=== PATIENT | female | born 1995 | race Caucasian/White ===

== ENCOUNTER 2020-03-27 12:10 | Emergency (ER) | payer OTHER, SELFPAY ==
[2020-03-27 12:26] VITALS: BP 142/96; PULSE 87; RESP 16; TEMP 37.5; O2SAT 100
--- NOTE | 2020-03-27 13:05 | ED.FEMALEGU ---
HPI - Female Genitourinary General Chief complaint: Urogenital-Female Stated complaint: possibl uti History of Present Illness HPI Narrative: This is a 27-year-old white female who presented today to urgent care with complaints of painful urination. According to patient she has had the symptoms for approximately 4 days, while at home she states she drink plenty of fluids with no relief. Patient does have a history of urinary tract infection she notes that previously she became septic as a result of not being treated and was in the hospital for 3 to 4 days. We will treat this patient for urinary tract infection based on symptoms a culture will be sent out. The patient denies hematuria , urgency , incontinence , frequency SOB, CP, palpitation, extremity numbness, lightheadedness, dizziness, constipation, diarrhea, chills, or fever. Patient denies any STDs Related Data Home Medications Medication Instructions Recorded Confirmed levonorgestrel [Mirena] 1 device INTRAUTERINE ONCE 03/27/20 03/27/20 Allergies Allergy/AdvReac Type Severity Reaction Status Date / Time No Known Allergies Allergy Verified 03/27/20 12:23 Review of Systems Review of Systems: All systems reviewed & are unremarkable except as noted in HPI and below PMFSH Social History Social History Gender identity (if verbalized by the patient): Female Exam Narrative: Exam Narrative: GENERAL: This is a well-nourished, well-developed patient, in no apparent distress. HEAD: normocephalic, atraumatic. EYES: PERRL. Sclera clear/white. Vision is grossly intact. EARS: External ears normal, auditory canals clear and without drainage, TMs normal without perforation. Hearing grossly intact. NOSE: External nose normal with no obvious nasal discharge, nares without redness, no rhinorrhea. THROAT: Mucous membranes moist, posterior pharynx clear. NECK: Neck supple, non-tender without lymphadenopathy, masses or thyromegaly. CARDIOVASCULAR: Regular rate and rhythm without murmurs, gallops, or rubs. RESPIRATORY: Clear to auscultation. Breath sounds equal bilaterally. No wheezes, rales, or rhonchi. GASTROINTESTINAL: Abdomen soft, non-tender, nondistended. Bowel sounds are active. No hepato-splenomegaly, or palpable masses. No guarding. SKIN: warm, intact with no suspicious lesions or rash, good texture and turgor. NEURO: awake, alert, and oriented to person, place and time. There were no obvious focal neurologic abnormalities. Steady gait EXTREMITIES: Normal range of motion. No edema. No calf tenderness. Negative Homans sign bilaterally. BACK: Nontender without deformity or crepitance. No flank tenderness. Course Course Emergency Course: Patient will discharge home with Bactrim x3 days. Culture sent out Urinalysis negative, will treat patient off of symptoms along and history Vital Signs Vital signs: Vital Signs Temperature 99.5 F 03/27/20 12:26 Pulse Rate 87 03/27/20 12:26 Respiratory Rate 16 03/27/20 12:26 Blood Pressure 142/96 H 03/27/20 12:26 Pulse Oximetry 100 03/27/20 12:26 Temperature 99.5 F 03/27/20 12:26 Pulse Rate 87 03/27/20 12:26 Respiratory Rate 16 03/27/20 12:26 Blood Pressure 142/96 H 03/27/20 12:26 Pulse Oximetry 100 03/27/20 12:26 MDM - Female Genitourinary Differential Diagnosis Differential diagnosis: Likely urinary tract infection, bacterial vaginosis and vaginitis Lab Data Labs: Urine Glucose Negative Reference Range: Negative Urine Bilirubin Negative Reference Range: Negative Urine Ketone Negative Reference Range: Negative Urine Specific [place] 1.025 Reference Range:1.001-1.035
== END 2020-03-27 13:06 | disposition home or self-care (01) ==
PROVIDERS: Emergency Provider Nurse Practitioner
DX: N39.0 Urinary tract infection, site not specified (principal)
CPT/HCPCS: 81003; 87077; 87086; 87088; 99213; G0463

== ENCOUNTER 2020-09-23 10:08 | Emergency (ER) | payer OTHER, SELFPAY ==
[2020-09-23 10:31] VITALS: BP 110/52; PULSE 81; RESP 18; TEMP 36.8; O2SAT 99
--- NOTE | 2020-09-23 11:02 | ED.ALCOHOL ---
HPI - Alcohol General Chief Complaint: Alcohol Stated Complaint: ?alcohol Poisoning Time Seen by Provider: 09/23/20 10:39 Source: patient Mode of arrival: ambulatory Limitations: no limitations History of Present Illness HPI narrative: Patient is a 25-year-old female complaining of I drank too much last night , now having nausea and not feeling well . Patient states that she does not know how much she drank last night but she states that she drank a lot . Patient denies any chest pain, shortness of breath, abdominal pain, diarrhea, fever or chills. Related Data Home Medications Medication Instructions Recorded Confirmed levonorgestrel [Mirena] 1 device INTRAUTERINE ONCE 03/27/20 03/27/20 Allergies Allergy/AdvReac Type Severity Reaction Status Date / Time No Known Allergies Allergy Verified 03/27/20 12:23 Review of Systems Review of Systems: All systems reviewed & are unremarkable except as noted in HPI and below Constitutional: Constitutional: Denies body ache(s), Denies chills, Denies excessive sweating, Denies fatigue, Denies fever(s), Denies headache(s), Denies lethargy, Denies malaise, Denies weakness and Denies weight loss Eyes: Eyes: Denies blurry vision, Denies change in vision and Denies loss of vision ENT: Denies dizziness, Denies ear discharge, Denies headache(s), Denies lip swelling, Denies epistaxis, Denies nasal congestion, Denies neck pain, Denies throat swelling and Denies tongue swelling Cardiovascular: Cardiovascular: Denies chest pain, Denies chest pain at rest, Denies chest pain with activity, Denies diaphoresis, Denies rapid heart rate, Denies edema, Denies irregular heart rhythm, Denies lightheadedness, Denies palpitations, Denies dyspnea and Denies dyspnea on exertion Respiratory: Respiratory: Denies chest congestion, Denies cough, Denies hemoptysis, Denies dyspnea and Denies dyspnea on exertion Gastrointestinal: Gastrointestinal: Denies abdominal pain, Denies melena, Denies hematochezia, Denies diarrhea and Denies hematemesis Musculoskeletal: Musculoskeletal: Denies abnormal gait, Denies deformity, Denies joint swelling, Denies limited range of motion, Denies neck pain and Denies numbness Neurologic: Denies Abnormal speech present, Denies abnormal gait, Denies confusion, Denies dizziness, Denies headache(s), Denies focal weakness, Denies loss of vision, Denies numbness, Denies Other visual disturbances, Denies Sensory deficit (Neuro) and Denies weakness Psychiatric: Psychiatric: Denies confusion, Denies depression, Denies auditory hallucinations, Denies homicidal ideation and Denies suicidal ideation Endocrine: Endocrine: Denies cold intolerance, Denies excessive sweating, Denies fatigue, Denies heat intolerance and Denies palpitations Hematologic/Lymphatic: Hematologic/Lymphatic: Denies easy bleeding and Denies easy bruising Allergic/Immunologic: Allergic/Immunologic: Denies lip swelling, Denies throat swelling and Denies tongue swelling [facility] Social History Social History Gender identity (if verbalized by the patient): Female Comments Past medical history: None Family history: Noncontributory Social history: Non-smoker, occasional EtOH use, no drug use Exam Const: General: cooperative, healthy appearing, comfortable, no acute distress, well developed, alert and awake; No confusion Orientation/consciousness: oriented to person, oriented to place, oriented to time, patient oriented x3 and No confusion Limitations: no limitations HENMT: Head: normal to inspection, normocephalic and atraumatic Ears: hearing grossly normal bilaterally, TM normal on the right and TM normal on the left General nose exam: Normal external nose present, Normal nares present and No nasal discharge present Face and sinus: normal facial exam Mouth: Yes Normal oral and palatal mucosa present, Yes lip normal, Yes tongue normal and Yes oropharynx normal Thro
[2020-09-23 11:37] LABS: Basophils Absolute Auto 0.1 K/mm3 (0.0-0.1); Basophils Percent Auto 0.7 % (0.2-1.2); Eosinophils Absolute Auto 0.1 K/mm3 (0-0.3); Eosinophils Percent Auto 0.4 % (0-4.4); Hematocrit 37.3 % (37.0-47.0); Hemoglobin 12.8 g/dL (12.0-15.0); Immature Granulocyte Absolute 0.09 K/mm3 (0.00-0.031); Immature Granulocyte Percent A 0.6 % (0-0.5); Lymphocytes Absolute Auto 1.65 K/mm3 (0.9-3.2); Lymphocytes Percent Auto 11.9 % (18.3-44.2); Mean Corpuscular HGB Conc 34.3 g/dl (32-36); Mean Corpuscular Hemoglobin 30.2 pg (26-34); Mean Platelet Volume 10.1 fl (7.4-10.4); Monocytes Percent Auto 6.9 % (2.6-8.5); Neutrophils Percent Auto 79.5 % (45.5-73.1); Platelet Count Result 304 k/mm3 (150-375); Red Blood Count 4.24 M/mm3 (4.2-5.4); Red Cell Distribution Width 12.5 % (11.5-14.5); White Blood Count 13.9 K/mm3 (4.5-10.0)
[2020-09-23] MEDS: SODIUM CHLORIDE 0.9% IV 1,000 ML 999 ML IV CONT (11:37)
[2020-09-23] MEDS: ONDANSETRON INJ 4 MG/2 ML VIAL IV PUSH (11:37)
[2020-09-23 11:39] VITALS: BP 102/68; PULSE 68; RESP 22; TEMP 36.6; O2SAT 99
--- NOTE | 2020-09-23 11:46 | PC.NURSE ---
Patient reports miscarriage on wednesday09/21/20 at [facility] 12 and 06/26. She reports ongoing but minor bleeding with some lower abdominal cramping. Discomfort worse with palpation of the LLQ. She tells me that this was her first .
[2020-09-23 11:57] LABS: Alanine Aminotransferase 24 U/L (4-35); Albumin Level 4.4 g/dL (3.5-5.1); Alkaline Phosphatase 52 U/L (38-126); Anion Gap 17 mmol/L (8-16); Aspartate Amino Transferase 30 U/L (14-36); Bilirubin,Total 0.5 mg/dL (0.2-1.3); Blood Urea Nitrogen 7 mg/dL (7-17); Calcium 9.4 mg/dL (8.4-10.2); Carbon Dioxide 19 mmol/L (22-30); Chloride 102 mmol/L (98-107); Estimated CRCL calculation 141 ml/min; Estimated Glomerular Filt Rate > 60; Glucose 100 mg/dL (65-105); Lipase 18 U/L (23-300); Potassium 3.3 mmol/L (3.4-5.0); Sodium 138 mmol/L (137-145)
[2020-09-23 13:23] VITALS: BP 119/72; PULSE 85; RESP 17; TEMP 36.6; O2SAT 99
== END 2020-09-23 13:25 | disposition home or self-care (01) ==
PROVIDERS: Emergency Provider Emergency Medicine
DX: F10.129 Alcohol abuse with intoxication, unspecified (principal); R11.2 Nausea with vomiting, unspecified
CPT/HCPCS: 36415; 80053; 81025; 83690; 85025; 96361; 96374; 99284; J2405; J7030

== ENCOUNTER 2020-12-31 15:23 | Emergency (ER) | payer OTHER, SELFPAY ==
[2020-12-31 15:31] VITALS: BP 130/96; PULSE 78; RESP 16; TEMP 36.7; O2SAT 100
--- NOTE | 2020-12-31 15:31 | ED.FEMALEGU ---
HPI - Female Genitourinary General Chief complaint: Urogenital-Female Stated complaint: UTI Time Seen by Provider: 12/31/20 15:31 Source: patient and RN notes reviewed Mode of arrival: ambulatory Limitations: no limitations History of Present Illness HPI Narrative: 25-year-old female presents to the [facility] with complaints of urinary pain, frequency, urgency and bladder pressure. Been going on for almost a week. Denies nausea vomiting or diarrhea. Denies fevers. MD elicited complaint: UTI Related Data Allergies Allergy/AdvReac Type Severity Reaction Status Date / Time No Known Allergies Allergy Verified 12/31/20 15:24 Review of Systems Review of Systems: All systems reviewed & are unremarkable except as noted in HPI and below Constitutional: Constitutional: Reports no additional constitutional complaints Eyes: Eyes: Reports no additional eye complaints ENT: Reports system reviewed and no additional complaints, except as documented Cardiovascular: Cardiovascular: Reports no additional cardiovascular complaints Respiratory: Respiratory: Reports no additional respiratory complaints Gastrointestinal: Gastrointestinal: Reports abdominal pain (Suprapubic pressure), Denies diarrhea, Denies nausea and Denies vomiting Genitourinary: Genitourinary: Reports as per HPI, Denies hematuria, Reports nocturia, Denies genital lesions, Reports dysuria, Denies pelvic pain, Denies flank pain and Denies urinary incontinence Musculoskeletal: Musculoskeletal: Reports no additional musculoskeletal complaints Integumentary/Breasts: Skin/Breast: Reports system reviewed and no additional complaints, except as docu Neurologic: Reports system reviewed and no additional complaints, except as documented Psychiatric: Psychiatric: Reports no additional psychiatric complaints Allergic/Immunologic: Allergic/Immunologic: Reports no additional allergic/immunologic complaints PMFSH Past Medical History Medical History (Updated 01/02/21 @ 08:27 by Jennifer Swift) No significant past medical history Surgical History Surgical History (Updated 12/31/20 @ 15:47 by Jennifer Swift) No significant past surgical history Social History Social History Gender identity (if verbalized by the patient): Female Comments At the time of my signature, I reviewed and agree with the nursing past medical, surgical, social, and family history. There is no relevant family history pertinent to the patient complaint. Exam Const: General: healthy appearing, no acute distress and alert Nutritional Appearance: well nourished Orientation/consciousness: patient oriented x3 Limitations: no limitations HENMT: Head: normal to inspection Eyes: Pupils: Equal, round and reactive pupils present Neck: Neck: normal visual inspection, no lymphadenopathy and no meningeal signs Chest: Chest palpation & inspection: normal inspection of the chest Resp: Effort & Inspection: normal respiratory effort and no use of accessory muscles Auscultation: clear to auscultation bilaterally Cardio: Rate: regular rate Rhythm: regular rhythm GI: GI Palp: Yes Soft to palpation, No Tenderness to palpation present (GI) and No Guarding due to palpation present (GI) : General: Yes no CVA tenderness Back/Spine/Pelvis: Back: no CVA tenderness Skin: General skin exam: normal color Rashes: no rashes Neuro: General: patient oriented x3, moves all extremities, no meningeal signs and no focal motor deficits Speech: normal speech Gait exam (Neuro): Normal gait present Extrem: General: normal to inspection Psych: Mental Status: mental status grossly normal Affect: normal affect Attitude: cooperative Thought content: Yes Normal thought content present Judgement: Good judgement present (Psych) Course Course Emergency Course: Discharge instructions reviewed with patient, as well as provided in writing per nursing staff. The instr
== END 2020-12-31 15:53 | disposition home or self-care (01) ==
PROVIDERS: Emergency Provider Nurse Practitioner
DX: N39.0 Urinary tract infection, site not specified (principal)
CPT/HCPCS: 81003; 87077; 87086; 87088; 87186; 99213; G0463

== ENCOUNTER 2021-06-29 08:56 | Emergency (ER) | payer OTHER, SELFPAY ==
[2021-06-29] VITALS (10 sets, daily range): BP systolic 88–121; BP diastolic 43–73; PULSE 89–118; RESP 18–29; TEMP 36.7; O2SAT 98–100
--- NOTE | ~2021-06-29 | CT_ITS ---
EXAMINATION: CT brain wo con, CT cervical spine wo con EXAM DATE: 06/29/2021 09:58 INDICATION: 22 weeks preg, syncope, right frontal head injury. TECHNIQUE: Spiral CT of the head was performed without contrast. Axial, coronal and sagittal images were reviewed. Spiral CT of the cervical spine was performed without contrast. Axial images were rev iewed. Coronal and sagittal reformatted images were also reviewed. The dose-length product (DLP) fo r this examination was 605.33 (accession [id number]), 425.46 (accession [id number]) mGy-cm. The exposure was tailored according to patient size, and iterative reconstruction (ASIR) was used as additional dose reduction technique. There is no prior study for comparison. FINDINGS: HEAD CT: There is no acute intraparenchymal hemorrhage. No evidence of intraparenchymal brain mass l esion. No evidence of acute infarction. There is no mass effect or midline shift. There is no obstru ctive hydrocephalus suspected. There are no extra-axial collections. There are no acute calvarial f ractures. The orbits are unremarkable. Soft tissue is unremarkable. The visualized sinuses and mas toid air cells are well aerated. CERVICAL CT: There is no evidence of acute cervical fracture. The odontoid process is intact. Pre-d ens space is normal. Prevertebral soft tissue is normal. There are no soft tissue abnormalities parish ntified. There is no disc space widening or traumatic vertebral body subluxation suspected. Vertebr al body and disc heights are well-maintained. A detailed level by level evaluation of spondylosis c an be added as addendum if requested. IMPRESSION: 1. No acute intracranial findings or cervical fracture. 2. Small right frontal scalp contusion. Reviewed, dictated and finalized at location A. IMPRESSION: 1. No acute intracranial findings or cervical fracture. 2. Small right frontal scalp contusion.
--- NOTE | ~2021-06-29 | US_ITS ---
EXAMINATION: US OB limited EXAM DATE: 06/29/2021 11:23 INDICATION: 22 weeks, Hx of p.previa, fall/syncope . 2nd trimester. TECHNIQUE: Pelvic obstetrical transabdominal sonogram was performed by a technologist. There are mu ltiple grayscale and Doppler images available for interpretation. There are no earlier studies of th is gestation for comparison. FINDINGS: There is a single fetus identified in variable presentation with a heart rate of 145 beats per minute. The placenta is located in the anterior position. There is no sonographic evidence of re troplacental hemorrhage identified. Placental margin to internal cervical os distance is 2.2 cm. IMPRESSION: 1. Single fetus in variable presentation with heart rate 145 beats per minute. 2. Anteriorly located placenta, margin 2.2 cm from internal cervical os. No sonographic evidence of abruption. Reviewed, dictated and finalized at location A. IMPRESSION: 1. Single fetus in variable presentation with heart rate 145 beats per minute. 2. Anteriorly located placenta, margin 2.2 cm from internal cervical os. No so nographic evidence of abruption.
--- NOTE | 2021-06-29 09:08 | ECG_ITS ---
Measurements Intervals [place] Rate: 116 P: 7 GA: 153 QRS: 20 QRSD: 86 T: -12 QT: 341 QTc: 474 Interpretive Statements SINUS TACHYCARDIA NONSPECIFIC T-WAVE ABNORMALITY CANNOT RULE OUT ANTERIOR INFARCTION, AGE INDETERMINATE ABNORMAL ECG NO PREVIOUS ECG AVAILABLE FOR COMPARISON Electronically Signed On 06-30-2021 13:51:03 CDT by David Valerio M.D.
[2021-06-29 09:13] LABS: Glucose Point of Care 119 mg/dl (65-105)
[2021-06-29 09:34] LABS: Basophils Percent Auto 0.3 % (0.2-1.2); Eosinophils Percent Auto 0.1 % (0-4.4); Hemoglobin 11.2 g/dL (12.0-15.0); Immature Granulocyte Absolute 0.34 K/mm3 (0.00-0.031); Immature Granulocyte Percent A 2.4 % (0-0.5); Lymphocytes Absolute Auto 1.72 K/mm3 (0.9-3.2); Lymphocytes Percent Auto 12.4 % (18.3-44.2); Mean Corpuscular Hemoglobin 30.9 pg (26-34); Mean Corpuscular Volume 88.4 fl (80-100); Mean Platelet Volume 9.7 fl (7.4-10.4); Monocytes Absolute Auto 0.8 K/mm3 (0.1-0.6); Neutrophils Percent Auto 78.8 % (45.5-73.1); Platelet Count Result 280 k/mm3 (150-375); Red Blood Count 3.62 M/mm3 (4.2-5.4); Red Cell Distribution Width 13.1 % (11.5-14.5); White Blood Count 13.9 K/mm3 (4.5-10.0)
--- NOTE | 2021-06-29 09:34 | ED.SYNCOPE ---
HPI - Syncope General Chief Complaint: Syncope <Mellissa Kang PA-C - Last Filed: 06/29/21 13:21> Stated Complaint: Syncopal Episode <Mellissa Kang PA-C - Last Filed: 06/29/21 13:21> Time Seen by Provider: 06/29/21 08:58 <Mellissa Kang PA-C - Last Filed: 06/29/21 13:21> Source: patient and family <ESME Bender Last Filed: 06/29/21 13:21> Mode of arrival: ambulatory <ESME Bender Last Filed: 06/29/21 13:21> Limitations: no limitations <ESME Bender Last Filed: 06/29/21 13:21> History of Present Illness HPI narrative: Patient is a 25-year-old female who presents to the ED with report of syncope. Patient is currently 22 weeks . Her HEALTH AND SAFETY DIRECTOR is Dr. Obrien. She reports she was recently started on sertraline for her depression which was increased from 50 mg to 100 mg 1 week ago. Patient has had intermittent episodes of lightheadedness and near syncope since beginning the sertraline however she has never passed out. She reports being under increased stress recently and states last night she got into a heated argument with her . She hardly slept last night. Patient was then talking to her mother this morning when she had a syncopal episode. Patient's mother at bedside reports the patient began repeating what she was saying and then lost consciousness and fell forward hitting her head. Mother states it took approximately 40 to 50 seconds for patient to fully regained consciousness. Patient remembers feeling lightheaded, but does not remember much else about the syncopal episode. She complains of pain to her right forehead where she sustained a small contusion. No neck pain, chest pain, shortness of breath, abdominal pain, vaginal bleeding, leakage of fluid, nausea, vomiting, vision changes. Patient last had an ultrasound on 06/19. She does note she has marginal placenta previa. <ESME Bender Last Filed: 06/29/21 13:21> Related Data Allergies/Adverse Reactions: Allergies Allergy/AdvReac Type Severity Reaction Status Date / Time No Known Allergies Allergy Verified 06/29/21 09:15 <Mellissa Kang PA-C - Last Filed: 06/29/21 13:21> Review of Systems Review of Systems: CONSTITUTIONAL: Denies fever, chills, or sweats. EYES: Denies visual changes. CARDIOVASCULAR: Denies chest pain. RESPIRATORY: Denies dyspnea. GASTROINTESTINAL: Denies abdominal pain, nausea, vomiting. GENITOURINARY: Denies vaginal bleeding, leakage of fluid, dysuria, or hematuria. SKIN: Denies rash or itching. MUSCULOSKELETAL: Denies back pain, neck pain. NEUROLOGIC: Reports lightheadedness, pain to R forehead, syncope, LOC. Denies numbness, or weakness. PSYCHIATRIC: Reports depression. Denies anxiety. <Mellissa Kang PA-C - Last Filed: 06/29/21 13:21> All systems reviewed & are unremarkable except as noted in HPI and below <Mellissa Kang PA-C - Last Filed: 06/29/21 13:21> PMFSH Past Medical History Medical History: Medical History (Updated 06/29/21 @ 11:52 by Mellissa Kang PA-C) Anemia Depression affecting No significant past medical history <Mellissa Kang PA-C - Last Filed: 06/29/21 13:21> Surgical History Surgical History: Surgical History No significant past surgical history <Mellissa Kang PA-C - Last Filed: 06/29/21 13:21> Social History Social History: Social History (Updated 06/29/21 @ 09:43 by Mellissa Kang PA-C) Smoking status: Never smoker Gender identity (if verbalized by the patient): Female <Mellissa Kang PA-C - Last Filed: 06/29/21 13:21> Exam Narrative: GENERAL: Well appearing, well-nourished, non-toxic, in no acute distress. HEAD: Normocephalic. Small tender contusion with ecchymosis forming on R forehead. EYES: PERRL/EOMI, conjunctivae clear bilaterally. NECK: Supple. No adenopathy, no masses. No midline spinal tenderness to palpation.
[2021-06-29 09:45] LABS: Alanine Aminotransferase 12 U/L (4-35); Albumin Level 4.2 g/dL (3.5-5.1); Alkaline Phosphatase 57 U/L (38-126); Anion Gap 14 mmol/L (8-16); Aspartate Amino Transferase 25 U/L (14-36); Bilirubin,Total < 0.1 mg/dL (0.2-1.3); Blood Urea Nitrogen 5 mg/dL (7-17); Calcium 8.5 mg/dL (8.4-10.2); Carbon Dioxide 18 mmol/L (22-30); Chloride 106 mmol/L (98-107); Estimated CRCL calculation 175 ml/min; Estimated Glomerular Filt Rate > 60; Glucose 106 mg/dL (65-110); Potassium 3.6 mmol/L (3.4-5.0); Sodium 138 mmol/L (137-145)
--- NOTE | 2021-06-29 09:47 | PC.NURSE ---
Pt to CT scan via stretcher at this time.
[2021-06-29 09:50] LABS: Add Urine Microscopic? YES; Appearance Urine Cloudy (Clear); Bilirubin Urine Negative (Negative); Blood Urine Negative (Negative); Color Urine Yellow (Yellow); Glucose Urine UA Negative (Negative); Ketones Urine Negative (Negative); Leukocyte Esterase Ur Negative LEU/UL (Negative); Mucus Urine Rare /lpf; Nitrate Urine Negative (Negative); Protein Urine 2+ mg/dL (Negative); RBC Urine 0-2 /hpf (0-2); Specific Grav Ur 1.014 (1.001-1.035); Squamous Epithelial Cell Urine Few /hpf (Few); Urobilinogen Urine Negative mg/dL (<2.0); WBC Urine 0-3 /hpf
[2021-06-29] MEDS: SODIUM CHLORIDE 0.9% IV 1,000 ML 999 ML IV CONT ×2 (10:07→11:39)
--- NOTE | 2021-06-29 11:25 | PC.NURSE ---
Pt to U/S at this time.
== END 2021-06-29 13:21 | disposition home or self-care (01) ==
PROVIDERS: Physician Assistant; Emergency Provider Emergency Medicine
DX: O26.892 Other specified pregnancy related conditions, second trimester (principal); R55 Syncope and collapse; O99.342 Other mental disorders complicating pregnancy, second trimester; F32.A Depression, unspecified; O99.012 Anemia complicating pregnancy, second trimester; D64.9 Anemia, unspecified; Z3A.22 22 weeks gestation of pregnancy
CPT/HCPCS: 36415; 70450; 72125; 76815; 80053; 81001; 82948; 84702; 85025; 93005; 96360; 96361; 99284; J7030

== ENCOUNTER 2021-08-27 01:49 | Observation (INO) | payer OTHER, SELFPAY ==
[2021-08-27 02:15] VITALS: BP 103/67; PULSE 83
[2021-08-27 02:30] VITALS: BP 104/66; PULSE 80
[2021-08-27 02:45] VITALS: BP 98/60; PULSE 86
[2021-08-27 03:00] VITALS: BP 111/56; PULSE 78
[2021-08-27 03:07] LABS: Appearance Urine Clear (Clear); Bilirubin Urine Negative (Negative); Blood Urine Negative (Negative); Color Urine Yellow (Yellow); Glucose Urine UA Negative (Negative); Ketones Urine 2+ mg/dL (Negative); Leukocyte Esterase Ur Negative LEU/UL (Negative); Nitrate Urine Negative (Negative); Protein Urine Negative (Negative); Specific Grav Ur 1.025 (1.001-1.035); Urobilinogen Urine 0.2 mg/dL (<2.0); pH Urine 6.5 (5.0-9.0)
[2021-08-27 03:10] LABS: Mucus Urine Rare /lpf; RBC Urine 0-2 /hpf (0-2); Squamous Epithelial Cell Urine Rare /hpf (Few); WBC Urine 0-3 /hpf
[2021-08-27 03:13] LABS: Add Urine Microscopic? YES
[2021-08-27 03:15] VITALS: BP 91/50; PULSE 77
--- NOTE | 2021-08-29 05:54 | P.PNOB_ITS ---
OB - Triage/Final Diagnosis Visit Information Comments/Additional reasons for admission: I have assessed the risk for this patient, Josie Henderson, and determined that she would benefit from observation care. Evaluation Laboratory results: Laboratory Tests 08/27/21 02:15 Urine Color Yellow Urine Appearance Clear Urine pH 6.5 Ur Specific [place] 1.025 Urine Protein Negative Urine Glucose (UA) Negative Urine Ketones 2+ H Ur Blood (Man) Negative Urine Nitrate Negative Urine Bilirubin Negative Urine Urobilinogen 0.2 Leukocyte Esterase Rfl Negative Urine RBC 0-2 Urine WBC 0-3 Ur Squamous Epith Cells Rare Urine Mucus Rare Final Diagnosis (1) Abdominal pain affecting : Code(s): O26.899 - Other specified related conditions, unspecified trimester; R10.9 - Unspecified abdominal pain Status: Acute
== END 2021-08-27 03:25 | disposition home or self-care (01) ==
PROVIDERS: Admitting Provider Obstetrics & Gynecology; Visit Provider Obstetrics & Gynecology
DX: O26.899 Other specified pregnancy related conditions, unspecified trimester (principal); R10.9 Unspecified abdominal pain; Z3A.00 Weeks of gestation of pregnancy not specified
CPT/HCPCS: 81001; G0378; G0379

== ENCOUNTER 2021-09-18 12:39 | Outpatient (RCR) | payer OTHER, SELFPAY ==
[2021-09-19] MEDS: RHO(D) IMMUNE GLOBULIN 300 MCG/2 ML SYRINGE IM (16:36)
== END 2021-12-17 23:59 | disposition home or self-care (01) ==
LOC: ANHLAB 12:39
PROVIDERS: Visit Provider Advanced Practice Midwife
DX: Z29.13 Encounter for prophylactic Rho(D) immune globulin (principal); O36.0130 Maternal care for anti-D [Rh] antibodies, third trimester, not applicable or unspecified; Z3A.00 Weeks of gestation of pregnancy not specified
CPT/HCPCS: 36415; 85461; 90384; 96372; J2790

== ENCOUNTER 2021-10-28 08:31 | Inpatient (IN) | payer OTHER, SELFPAY ==
[2021-10-28] VITALS (56 sets, daily range): BP systolic 86–163; BP diastolic 46–79; PULSE 72–134; RESP 12–18; TEMP 36.1–36.6; O2SAT 97–100; BMI 33.5
--- OUTSIDE RECORDS SUMMARY | 2021-10-28 08:38 | XMS_ITS | Encounter Summary ---
:1995 Author Care Team Providers Name Role Phone Johnny Nuñez MD Primary Care Provider [phone] Reason for Visit None recorded. Assessment and Plan 1. Placenta previa marginalis ? US, obstetric, follow-up Discussion Note: None recorded.Patient educational handouts: No information available. Plan of Care Reminders Provider Appointments Surg Post Op 11/05/2021 3:15PM Miki Obrien MD Lab None recorded. ? ? Referral None recorded. ? ? Procedures None recorded. ? ? Surgeries None recorded. ? ? Imaging US, Obstetric, 07/30/2021 [place] Follow-up Medications Name Start Date ? ? + DHA ? sertraline 100 mg tablet ? Take 1 tablet every day by oral route. valacyclovir 1 gram tablet ? Take 1 tablet every 12 hours by oral route. Medications Administered None recorded. Vitals None recorded. Results Lab Results None recorded. Allergies Code Code System Name Reaction Severity Onset NKDA ? ? ? Problems Name Status Onset Date Source ? Active 05/27/2021 ? Mixed Anxiety and Depressive Disorder Active ? ? Procedures Date Name Performed by ? 03/22/2004 Excision of Lymph Node Information not a vailable Notes: cat scatch fever 07/30/2021 US, Obstetric, Follow-up [place] [address] [place] [address] ([address]) Vaccine Lis
--- OUTSIDE RECORDS SUMMARY | 2021-10-28 08:38 | XMS_ITS | Encounter Summary ---
:1995 Author Care Team Providers Name Role Phone Johnny Nuñez MD Primary Care Provider [phone] Reason for Visit OB visit OB [id number] EDC 11/01/2021 LMP 01/25/2021 Assessment and Plan Assessment Note Patient is _36__weeks . Discuss ed plan. 1. Routine care Discussion Note: None recorded.Patient educational handouts: No information available. Plan of Care Reminders Provider Appointments Surg Post Op 11/05/2021 3:15PM Miki Obrien MD Lab None recorded. ? ? Referral None recorded. ? ? Procedures None recorded. ? ? Surgeries None recorded. ? ? Imaging None recorded. ? ? Medications Name Start Date ? ? + DHA ? sertraline 100 mg tablet ? Take 1 tablet every day by oral route. valacyclovir 1 gram tablet ? Take 1 tablet every 12 hours by oral route. Medications Administered None recorded. Vitals Height Weight BMI Blood Pressure 5 ft 3 in 189 lbs 33.5 kg/m2 107/70 mm[Hg] Results Lab Results None recorded. Allergies Code Code System Name Reaction Severity Onset NKDA ? ? ? Problems Name Status Onset Date Source ? Active 05/27/2021 ? Mixed Anxiety and Depressive Disorder Active ? ? Procedures Date Name Performed by ? 03/22/2004 Excision of Lymph Node Information not a vailable Notes: cat scatch fever 10/02/2021 US, Obstetric, Follow-up [place]
--- OUTSIDE RECORDS SUMMARY | 2021-10-28 08:38 | XMS_ITS ---
:1995 Author Care Team Providers Name Role Phone SCOTTY MEADOWS MD Primary Care Provider [phone] Allergies Code Code System Name Reaction Severity Status Onset NKDA ? Medications Name Status Start Date Stop Date ? ? metronidazole 500 mg tablet Completed ? 10/2021 TAKE 4 TABLETS BY MOUTH FOR 1 DOSE nitrofurantoin monohydrate/macrocrystals 100 mg capsule Complete d ? 04/29/2021 TAKE 1 CAPSULE BY MOUTH EVERY 12 HOURS FOR 7 DAYS phenazopyridine 100 mg tablet Completed ? TAKE 1 TABLET BY MOUTH 3 TIMES A DAY FOR 2 DAYS + DHA Active ? Not available sertraline 100 mg tablet Active ? Not gail ilable sertraline 50 mg tablet Completed ? 07/31/19 sulfamethoxazole 800 mg-trimethoprim 160 mg tablet Completed ? 08/15/2020 TAKE 1 TABLET BY MOUTH EVERY 12 HOURS FOR 3 DAYS valacyclovir 1 gram tablet Active ? Not a vailable Take 1 tablet every 12 hours by oral route. Problems Name Status Onset Date Source ? Active 05/27/2021 ? Mixed Anxiety and Depressive Disorder Active ? ? Procedures Date Name Performed by ? 03/22/2004 Excision of Lymph Node Information not a vailable Notes: cat scatch fever 06/19/2021 US, Obstetric, 2Nd or 3Rd Trimester [place] [facility] [address] [place] [address] ([address]) 06/19/2021 US, Obstetric, Transv[place] [address]
--- OUTSIDE RECORDS SUMMARY | 2021-10-28 08:38 | XMS_ITS | Encounter Summary ---
:1995 Author Care Team Providers Name Role Phone Johnny Nuñez MD Primary Care Provider [phone] Reason for Visit OB visit Assessment and Plan Assessment Note Patient is ___weeks . Discussed plan. 1. Routine care Discussion Note: None [...] BMI Blood Pressure 5 ft 3 in 187 lbs 33.1 kg/m2 105/70 mm[Hg] Results Lab Results None recorded. Allergies Code Code System Name Reaction Severity Onset NKDA ? ? ? Problems Name Status Onset Date Source ? Active 05/27/2021 ? Mixed Anxiety and Depressive Disorder Active ? ? Procedures Date Name Performed by ? 03/22/2004 Excision of Lymph Node Information not a vailable Notes: cat scatch fever Vaccine List None recorded. Social History Tobacco Smoking Status Current Every Day Smoker Do you have difficulty walking or cli
--- OUTSIDE RECORDS SUMMARY | 2021-10-28 08:38 | XMS_ITS | Encounter Summary ---
:1995 Author Care Team Providers Name Role Phone Johnny Nuñez MD Primary Care Provider [phone] Reason for Visit OB problem OB problem [id number] EDC 11/01/2021 LMP 01/25/2021 patient is wanting std/ testing possible vaginal infection or HSV breakout Assessment and Plan 1. Lesion of vulva 2. Sexually transmitted infectious dise ase ? hsv (1+2) igm, serum ? hsv-1 igg Ab, serum ? hsv-2 igg Ab, serum ? valacyclovir 1 gram tablet Discussion Note: None recorded.Patient educational handouts: No information available. Plan of Care Reminders Provider Appointments Surg Post Op 11/05/2021 3:15PM Miki Obrien MD Lab Hsv (1+2) Igm, Serum 10/17/2021 [facility] (Lab) ? Hsv-1 Igg Ab, Serum 10/17/2021 [facility] (Lab) ? Hsv-2 Igg Ab, Serum 10/17/2021 [facility] (Lab) Referral None recorded. ? ? Procedures None [...] ft 3 in 189 lbs 33.5 kg/m2 113/73 mm[Hg] Results Lab Results Date Name Specimen Result Interpretation Description Value Range Status Address ? 10/17/2021 Her
--- OUTSIDE RECORDS SUMMARY | 2021-10-28 08:38 | XMS_ITS | Encounter Summary ---
:1995 Author Care Team Providers Name Role Phone Johnny Nuñez MD Primary Care Provider [phone] Reason for Visit OB visit OB [id number] EDC 11/01/2021 LMP 01/25/2021 Assessment and Plan Assessment Note Patient is _35__weeks . Discuss ed plan. 1. Routine care [...] ft 3 in 187 lbs 33.1 kg/m2 119/70 mm[Hg] Results Lab Results None recorded. Allergies [...] None recorded. Social History Tobacco Smoking Status Cur
--- OUTSIDE RECORDS SUMMARY | 2021-10-28 08:38 | XMS_ITS | Encounter Summary ---
:1995 Author Care Team Providers Name Role Phone Johnny Nuñez MD Primary Care Provider [phone] Reason for Visit None recorded. Assessment and Plan 1. Uterine size for dates discrepancy ? US, obstetric, follow-up Discussion Note: None recorded.Patient educational handouts: No information available. Plan of Care Reminders Provider Appointments Surg Post Op 11/05/2021 3:15PM Miki Obrien MD Lab None recorded. ? ? Referral None recorded. ? ? Procedures None recorded. ? ? Surgeries None recorded. ? ? Imaging US, Obstetric, 10/02/2021 [place] Follow-up Medications Name Start Date ? ? [...] cat scatch fever 10/02/2021 US, Obstetric, Follow-up [facility] [address] [place] [address] ([address]) Vac
--- NOTE | 2021-10-28 08:52 | LDADM ---
This patient, Josie Henderson, was admitted to Labor/Delivery/Recovery 120 on 10/28/21 at 08:31. Plans for labor, pain management and were discussed with patient. Patient/family oriented to hospital policies and general routines including ID bracelet, bed and alarms, visiting hours, pain management, procedures, bathroom and other care routines, personal items, smoking policy, room service/diet and guest tray routines, security routines, and visiting hours. Patient/Family are encouraged to report perceived risks to care and to ask questions if they do not understand what they are told or what they should do. See OBIX for further documentation.
[2021-10-28 09:15] LABS: Basophils Absolute Auto 0.1 K/mm3 (0.0-0.1); Basophils Percent Auto 0.5 % (0.2-1.2); Eosinophils Absolute Auto 0.1 K/mm3 (0-0.3); Eosinophils Percent Auto 0.6 % (0-4.4); Hematocrit 34.4 % (37.0-47.0); Hemoglobin 11.2 g/dL (12.0-15.0); Immature Granulocyte Absolute 0.18 K/mm3 (0.00-0.031); Immature Granulocyte Percent A 1.8 % (0-0.5); Lymphocytes Absolute Auto 2.14 K/mm3 (0.9-3.2); Lymphocytes Percent Auto 20.9 % (18.3-44.2); Mean Corpuscular HGB Conc 32.6 g/dl (32-36); Mean Corpuscular Hemoglobin 29.9 pg (26-34); Mean Platelet Volume 10.2 fl (7.4-10.4); Monocytes Absolute Auto 0.9 K/mm3 (0.1-0.6); Monocytes Percent Auto 8.7 % (2.6-8.5); Neutrophils Absolute Auto 6.9 K/mm3 (1.3-6.7); Neutrophils Percent Auto 67.5 % (45.5-73.1); Platelet Count Result 243 k/mm3 (150-375); Red Blood Count 3.74 M/mm3 (4.2-5.4); Red Cell Distribution Width 14.6 % (11.5-14.5); White Blood Count 10.2 K/mm3 (4.5-10.0)
[2021-10-28] MEDS: LACTATED RINGERS 1,000 ML 125 ML IV CONT (09:20)
--- NOTE | 2021-10-28 10:02 | PM.IMHP ---
H&P: HPI History of Present Illness Date/Time: 10/28/21 10:02 Chief Complaint: HSV outbreak Narrative: This patient is a 26-year-old 2 para 0010 at 39 weeks gestation with her active herpes outbreak. She has been treated but the outbreak is in close proximity to delivery. It has been agreed to proceed with delivery of caution. She has no complaints. She reports good movement. She denies any loss of fluid, vaginal bleeding, contractions. Patient understands that delivery has risk. She understands that injuries may occur that result in hospitalization, more surgery, severe illness. She understands there is risk of hemorrhage and infection. She has completed the informed consent process. Review of Systems Review of Systems: All systems reviewed & are unremarkable except as noted in HPI and below Constitutional: Constitutional: Denies chills, Denies fatigue, Denies fever(s) and Denies weakness Eyes: Eyes: Denies blurry vision, Denies change in vision, Denies loss of peripheral vision, Denies loss of vision, Denies other visual disturbances and Denies eye pain ENT: Denies vertigo, Denies dizziness, Denies hearing loss, Denies mouth pain, Denies nasal obstruction, Denies neck mass and Denies neck pain Cardiovascular: Cardiovascular: Denies chest pain, Denies diaphoresis, Denies syncope, Denies leg edema and Denies dyspnea Respiratory: Respiratory: Denies chest congestion, Denies cough, Denies hemoptysis, Denies dyspnea and Denies wheezing Gastrointestinal: Gastrointestinal: Denies abdominal pain, Denies constipation, Denies diarrhea, Denies nausea and Denies vomiting Genitourinary: Genitourinary: Denies hematuria, Denies change in libido, Denies nocturia, Denies genital lesions, Denies flank pain and Denies urinary urgency Musculoskeletal: Musculoskeletal: Denies abnormal gait, Denies back pain, Denies myalgias, Denies arthralgias, Denies joint swelling, Denies muscle weakness and Denies neck pain Integumentary/Breasts: Skin/Breast: Denies swelling, Denies breast pain, Denies breast mass, Denies dry skin, Denies nipple discharge, Denies unusual bruising and Denies jaundice Neurologic: Denies Neuro-related abnormal movements, Denies Abnormal speech present, Denies abnormal gait, Denies behavioral changes, Denies confusion, Denies vertigo, Denies dizziness, Denies syncope, Denies loss of vision, Denies memory loss, Denies convulsions and Denies weakness Psychiatric: Psychiatric: Denies abnormal sleep pattern, Denies behavioral changes, Denies change in libido, Denies confusion, Denies depression, Denies anhedonia and Denies memory loss Endocrine: Endocrine: Reports no additional endocrine complaints, Denies change in libido and Denies fatigue Hematologic/Lymphatic: Hematologic/Lymphatic: Reports no additional hematologic/lymphatic complaints Allergic/Immunologic: Allergic/Immunologic: Reports no additional allergic/immunologic complaints and Denies wheezing PMFSH Past Medical History Medical History (Updated 10/28/21 @ 10:06 by Monica Obrien MD) Anemia Depression affecting No significant past medical history Surgical History Surgical History No significant past surgical history Family History Family History (Updated 10/04/21 @ 15:49 by Christiana Roth RN) Grandparent COPD (chronic obstructive pulmonary disease) Mother Hypertension Social History Social History (Updated 06/29/21 @ 09:43 by Mellissa Kang PA-C) Smoking status: Light tobacco smoker Tobacco type: cigarettes Substance use: never Gender identity (if verbalized by the patient): Female Spiritual care concerns: No Meds Home Medications and Allergies Home Medications Medication Instructions Recorded Confirmed Type prenat.vits,refugio,unm-crdv-vndgd 1 tablet PO HS 10/04/21 10/04/21 History sertraline 100 mg tablet 100 mg PO DAILY 10/04/21
--- NOTE | 2021-10-28 10:06 | WPDANESEPPF ---
Anes - Initial Pre Proc Eval Procedure: Operation Date: 10/28/21 10:30 Proposed Procedures p Section - Monica Obrien MD Date/Time: 10/28/21 10:06 Surgeon: Monica Obrien MD Pre Op Diagnosis: C/S Patient Data Age: 26 Gender: F Height: 1.6 m Weight: 86 kg Last Vital Signs Temp 36.6 C 10/28/21 08:48 Pulse 75 10/28/21 10:01 BP 118/74 10/28/21 10:01 O2 Del Method Room Air 10/28/21 08:50 Allergies Allergy/AdvReac Type Severity Reaction Status Date / Time No Known Allergies Allergy Verified 10/04/21 15:46 Home Medications Medication Instructions Recorded Confirmed Type prenat.vits,refugio,kab-akak-tbikz 1 tablet PO HS 10/04/21 10/04/21 History sertraline 100 mg tablet 100 mg PO DAILY 10/04/21 10/04/21 History Laboratory Tests 10/28/21 10/28/21 09:08 09:08 WBC 10.2 K/mm3 H K/mm3 (4.5-10.0) RBC 3.74 M/mm3 L M/mm3 (4.2-5.4) Hgb 11.2 g/dL L g/dL (12.0-15.0) Hct 34.4 % L % (37.0-47.0) MCV 92.0 fl fl (80-100) MCH 29.9 pg pg (26-34) MCHC 32.6 g/dl g/dl (32-36) RDW 14.6 % H % (11.5-14.5) Plt Count 243 k/mm3 k/mm3 (150-375) MPV 10.2 fl fl (7.4-10.4) Immature Gran % (Auto) 1.8 % H % (0-0.5) Neut % (Auto) 67.5 % % (45.5-73.1) Lymph % (Auto) 20.9 % % (18.3-44.2) [place] % (Auto) 8.7 % H % (2.6-8.5) Eos % (Auto) 0.6 % % (0-4.4) Baso % (Auto) 0.5 % % (0.2-1.2) Lymph # (Auto) 2.14 K/mm3 K/mm3 (0.9-3.2) [place] # (Auto) 0.9 K/mm3 H K/mm3 (0.1-0.6) Eos # (Auto) 0.1 K/mm3 K/mm3 (0-0.3) Baso # (Auto) 0.1 K/mm3 K/mm3 (0.0-0.1) Abs Immat Gran (auto) 0.18 K/mm3 H K/mm3 (0.00-0.031) Absolute Neuts (auto) 6.9 K/mm3 H K/mm3 (1.3-6.7) Absolute Nucleated RBC 0.0 K/mm3 K/mm3 (0.0-0.012) Nucleated RBC % 0.0 % % (0.0-0.2) RPR Pending Patient hx anesthesia problems: none Family hx anesthesia problems: none Results Review: All pre-operative results and documents have been reviewed as part of the pre-operative evaluation. [facility] Past Medical History Medical History Anemia Depression affecting No significant past medical history Surgical History Surgical History No significant past surgical history Family History Family History Grandparent COPD (chronic obstructive pulmonary disease) Mother Hypertension Social History Social History Smoking status: Light tobacco smoker Tobacco type: cigarettes Substance use: never Gender identity (if verbalized by the patient): Female Spiritual care concerns: No Anes - Eval Final PreProcedure Day of Procedure 10/28/21 10:06 Patient weight: obese Heart: regular rate and rhythm Lungs: clear to auscultation Airway: Mallampati scale class II Neurological: alert and oriented Last oral intake: >/= 8 hours ASA classification: II Emergent: no Anesthetic plan: proceed Anesthesia type and monitoring: regional spinal and standard monitoring Results Review: All pre-operative results and documents have been reviewed as part of the pre-operative evaluation. Informed Consent: The patient's anesthetic plan and its attendant risks and benefits were discussed with the patient/family/POA. Questions were solicited and answers provided to the satisfaction of the patient/family/POA.
--- NOTE | 2021-10-28 10:07 | WPDHPUPDATE1 ---
History and Physical Update Update Date/Time: 10/28/21 10:07 History and Physical has been reviewed, including an updated exam of the patient. There are NO changes in the patient's condition. Risks, benefits, and alternatives have been discussed and questions answered. Patient agrees to proceed with procedure.
[2021-10-28] MEDS: ceFAZolin 2 GM/D5W 50 ML 2 GM/50 ML BAG IVPB (10:37)
--- NOTE | 2021-10-28 11:37 | W.PM.PROC2 ---
Procedure Note - Detailed Date of Procedure 10/28/21 Pre-op Diagnosis HSV outbreak, term gestation Post-op Diagnosis Same Procedure Performed Low-transverse section Surgeon Monica Obrien MD Anesthesia Spinal Indications HSV outbreak at term Findings Normal gestational maternal anatomy, average size infant, normal Apgars. Description of Procedure The patient was taken the operating room. She was prepped and draped in dorsal supine position with a leftward tilt. This was done after spinal anesthetic was applied. A low-transverse skin incision was made and carried down till of the fascia with the knife. The fascial incision was made with the knife. The fascial incision was extended laterally with Cruz scissors. The fascia was tented upward superiorly and inferiorly the rectus muscles were dissected off bluntly. The rectus muscles were the midline. The preperitoneal fat and peritoneum were dissected open bluntly at the superior aspect of the rectus muscles. The peritoneal incision was extended superior and inferior with good position of bladder. The uterine incision was made with a scalpel down to the level of the amniotic cavity. The amniotic cavity was entered bluntly. The was delivered. The cord was clamped and cut and the was handed off to waiting pediatric staff. Cord bloods were obtained. The placenta was removed manually. The uterus was exteriorized. The uterus was cleared of all clots, debris and membranes. The uterus was closed in 0 Vicryl running lock fashion. An imbricating over a was placed along the incision line as well. The uterus was returned to the abdomen. The gutters were cleared of all clots and debris. The fascia was closed with 0 Vicryl running fashion. The subcutaneous tissue was irrigated pinpoint bleeders were cauterized. The skin was closed with subcuticular absorbable aryan. The skin incision line was covered with glue. The patient tolerated the procedure well. She has taken recovery room in stable condition. Sponge lap and needle counts were correct x2. Estimated Blood Loss 750 Pathology None sent Complications No immediate complications Condition Stable Disposition PACU
[2021-10-28] MEDS: OXYTOCIN 30 UNITS/NS 500 ML 30 UNITS/500 ML BAG 125 UNITS IV CONT (13:08)
--- NOTE | 2021-10-28 13:50 | PC.NURSE ---
Patient transferred to post room #282 via stretcher. Support person present. Oriented to unit, room, information board, rooming in, admission packet and security measures. Patient verbalizes understanding.
[2021-10-28] MEDS: DEXTROSE 5%/0.45% SOD CHL 1,000 ML 125 ML IV CONT (16:25)
[2021-10-28 19:05] LABS: Basophils Absolute Auto 0.1 K/mm3 (0.0-0.1); Basophils Percent Auto 0.4 % (0.2-1.2); Eosinophils Absolute Auto 0.1 K/mm3 (0-0.3); Eosinophils Percent Auto 0.4 % (0-4.4); Hematocrit 28.8 % (37.0-47.0); Hemoglobin 9.3 g/dL (12.0-15.0); Immature Granulocyte Absolute 0.09 K/mm3 (0.00-0.031); Immature Granulocyte Percent A 0.7 % (0-0.5); Lymphocytes Absolute Auto 1.53 K/mm3 (0.9-3.2); Lymphocytes Percent Auto 11.4 % (18.3-44.2); Mean Corpuscular HGB Conc 32.3 g/dl (32-36); Mean Corpuscular Hemoglobin 29.7 pg (26-34); Mean Platelet Volume 10.3 fl (7.4-10.4); Monocytes Absolute Auto 0.9 K/mm3 (0.1-0.6); Monocytes Percent Auto 6.6 % (2.6-8.5); Neutrophils Absolute Auto 10.8 K/mm3 (1.3-6.7); Neutrophils Percent Auto 80.5 % (45.5-73.1); Platelet Count Result 209 k/mm3 (150-375); Red Blood Count 3.13 M/mm3 (4.2-5.4); Red Cell Distribution Width 14.4 % (11.5-14.5); White Blood Count 13.4 K/mm3 (4.5-10.0)
[2021-10-28] MEDS: SIMETHICONE 80 MG TAB.CHEW PO (22:57)
[2021-10-29 00:03] VITALS: BP 108/49; PULSE 78; RESP 18; TEMP 36; O2SAT 99
[2021-10-29] MEDS: IBUPROFEN 600 MG TABLET PO ×3 (02:27→16:27)
[2021-10-29 04:30] VITALS: BP 107/59; PULSE 69; RESP 18; TEMP 35.9; O2SAT 100
[2021-10-29] MEDS: HYDROcodone/acetaminophen (*CRX) 5-325 MG TABLET 1 TAB PO ×3 (04:38→22:21)
[2021-10-29 06:07] LABS: Basophils Absolute Auto 0.1 K/mm3 (0.0-0.1); Basophils Percent Auto 0.4 % (0.2-1.2); Eosinophils Percent Auto 0.3 % (0-4.4); Hematocrit 28.5 % (37.0-47.0); Hemoglobin 9.3 g/dL (12.0-15.0); Immature Granulocyte Percent A 0.7 % (0-0.5); Lymphocytes Percent Auto 12.1 % (18.3-44.2); Mean Corpuscular HGB Conc 32.6 g/dl (32-36); Mean Corpuscular Hemoglobin 30.1 pg (26-34); Mean Corpuscular Volume 92.2 fl (80-100); Mean Platelet Volume 11.2 fl (7.4-10.4); Monocytes Absolute Auto 1.1 K/mm3 (0.1-0.6); Monocytes Percent Auto 7.9 % (2.6-8.5); Neutrophils Percent Auto 78.6 % (45.5-73.1); Platelet Count Result 224 k/mm3 (150-375); Red Blood Count 3.09 M/mm3 (4.2-5.4); Red Cell Distribution Width 14.6 % (11.5-14.5)
--- NOTE | 2021-10-29 07:13 | PM.OBPNVD ---
OB - PN: Subj Subjective Date/time seen: 10/29/21 07:13 s/p primary delivery for hsv, day 1 OB - PN: Obj Data Labs CBC & Chem 7: 10/29/21 04:22 Labs: Laboratory Results - last 24 hr 10/28/21 10/28/21 10/28/21 09:08 09:09 18:56 WBC 10.2 H 13.4 H RBC 3.74 L 3.13 L Hgb 11.2 L 9.3 L Hct 34.4 L 28.8 L MCV 92.0 92.0 MCH 29.9 29.7 MCHC 32.6 32.3 RDW 14.6 H 14.4 Plt Count 243 209 MPV 10.2 10.3 Immature Gran % (Auto) 1.8 H 0.7 H Neut % (Auto) 67.5 80.5 H Lymph % (Auto) 20.9 11.4 L [place] % (Auto) 8.7 H 6.6 Eos % (Auto) 0.6 0.4 Baso % (Auto) 0.5 0.4 Lymph # (Auto) 2.14 1.53 [place] # (Auto) 0.9 H 0.9 H Eos # (Auto) 0.1 0.1 Baso # (Auto) 0.1 0.1 Abs Immat Gran (auto) 0.18 H 0.09 H Absolute Neuts (auto) 6.9 H 10.8 H Absolute Nucleated RBC 0.0 0.0 Nucleated RBC % 0.0 0.0 Blood Type O Negative Antibody Screen Negative 10/29/21 04:22 WBC 14.0 H RBC 3.09 L Hgb 9.3 L Hct 28.5 L MCV 92.2 MCH 30.1 MCHC 32.6 RDW 14.6 H Plt Count 224 MPV 11.2 H Immature Gran % (Auto) 0.7 H Neut % (Auto) 78.6 H Lymph % (Auto) 12.1 L [place] % (Auto) 7.9 Eos % (Auto) 0.3 Baso % (Auto) 0.4 Lymph # (Auto) 1.70 [place] # (Auto) 1.1 H Eos # (Auto) 0.0 Baso # (Auto) 0.1 Abs Immat Gran (auto) 0.10 H Absolute Neuts (auto) 11.0 H Absolute Nucleated RBC 0.0 Nucleated RBC % 0.0 Blood Type Antibody Screen OB - PN A/P Plan day: 1 Time Spent With Patient Time: Total time spent is greater than 50% in coordination of care (as documented) at patient's floor/unit and/or counseling patient: Review of Systems Review of Systems: All systems reviewed & are unremarkable except as noted in HPI and below Exam Narrative: incision cdi Const: General: cooperative, healthy appearing and comfortable
[2021-10-29 07:35] VITALS: BP 107/52; PULSE 72; RESP 16; TEMP 36.6; O2SAT 100
--- NOTE | 2021-10-29 07:58 | WPDANLDNPN2 ---
Anes-Prog Note L&D-Neuraxial Date/Time: 10/29/21 07:58 Neuraxial medications: intrathecal PF morphine Opiod-related complaints: none Patient feedback: Patient satisfied with post-operative pain management.
--- NOTE | 2021-10-29 07:58 | WPDANLDPN2 ---
Anes-Prog Note L&D Date/Time: 10/29/21 07:58 Comfortable throughout: section Neuraxial method: spinal Epidural/Spinal procedure site: clean & non-tender Neuro status: Neuro function grossly intact. Cardiovascular status: normal Respiratory status: normal Airway patency: baseline Mental status: baseline Post-Op hydration status: normal Vital Signs: Last Vital Signs Temp 96.7 F L 10/29/21 04:30 Pulse 69 10/29/21 04:30 Resp 18 10/29/21 04:30 BP 107/59 L 10/29/21 04:30 Pulse Ox 100 10/29/21 04:30 O2 Del Method Room Air 10/29/21 04:30 Pain score (VAS): 0/10 I/O: Intake & Output 10/28/21 10/28/21 10/29/21 15:59 23:59 07:59 Intake Total 1000 1200 Output Total 7244 886 2169 Balance -1279 582 -500 Post-procedural complaints: none Patient feedback: Patient satisfied with anesthetic care.
--- NOTE | 2021-10-29 08:59 | PM.OBPNVD ---
OB - PN: Subj Subjective Date/time seen: 10/29/21 08:59 Patient comments: no complaints, pain well controlled, tolerating diet and flatus present OB - PN: Obj Data Labs CBC & Chem 7: 10/29/21 04:22 Labs: Laboratory Results - last 24 hr 10/28/21 10/28/21 10/28/21 09:08 09:09 18:56 WBC 10.2 H 13.4 H RBC 3.74 L 3.13 L Hgb 11.2 L 9.3 L Hct 34.4 L 28.8 L MCV 92.0 92.0 MCH 29.9 29.7 MCHC 32.6 32.3 RDW 14.6 H 14.4 Plt Count 243 209 MPV 10.2 10.3 Immature Gran % (Auto) 1.8 H 0.7 H Neut % (Auto) 67.5 80.5 H Lymph % (Auto) 20.9 11.4 L [place] % (Auto) 8.7 H 6.6 Eos % (Auto) 0.6 0.4 Baso % (Auto) 0.5 0.4 Lymph # (Auto) 2.14 1.53 [place] # (Auto) 0.9 H 0.9 H Eos # (Auto) 0.1 0.1 Baso # (Auto) 0.1 0.1 Abs Immat Gran (auto) 0.18 H 0.09 H Absolute Neuts (auto) 6.9 H 10.8 H Absolute Nucleated RBC 0.0 0.0 Nucleated RBC % 0.0 0.0 Blood Type O Negative Antibody Screen Negative Baby's Blood Type Baby's JEFE 10/29/21 10/29/21 04:22 04:22 WBC 14.0 H RBC 3.09 L Hgb 9.3 L Hct 28.5 L MCV 92.2 MCH 30.1 MCHC 32.6 RDW 14.6 H Plt Count 224 MPV 11.2 H Immature Gran % (Auto) 0.7 H Neut % (Auto) 78.6 H Lymph % (Auto) 12.1 L [place] % (Auto) 7.9 Eos % (Auto) 0.3 Baso % (Auto) 0.4 Lymph # (Auto) 1.70 [place] # (Auto) 1.1 H Eos # (Auto) 0.0 Baso # (Auto) 0.1 Abs Immat Gran (auto) 0.10 H Absolute Neuts (auto) 11.0 H Absolute Nucleated RBC 0.0 Nucleated RBC % 0.0 Blood Type O Negative Antibody Screen Negative Baby's Blood Type O pos Baby's JEFE Negative OB - PN A/P Plan day: 1 Comments: Post Op LTCS - no problems, routine recovery Time Spent With Patient Time: Total time spent is greater than 50% in coordination of care (as documented) at patient's floor/unit and/or counseling patient: Exam Const: General: cooperative, healthy appearing, comfortable and no acute distress Resp: Auscultation: no crackles, no rales, no rhonchi and no wheezes Cardio: Rhythm: regular rhythm Heart sounds: no click and no murmurs GI: Inspection: non-distended Auscultation: normal bowel sounds Extrem: General: normal to inspection, no pedal edema and no calf tenderness
[2021-10-29 09:00] VITALS: PULSE 72; RESP 16; O2SAT 100
[2021-10-29] MEDS: POLYSACCHARIDE IRON COMPLEX 150 MG CAPSULE PO ×3 (09:00→17:31)
[2021-10-29] MEDS: DOCUSATE SODIUM 100 MG CAPSULE PO ×3 (09:00→17:31)
[2021-10-29] MEDS: HYDROcodone/acetaminophen (*CRX) 10-325 MG TABLET 1 TAB PO ×2 (09:09→12:44)
[2021-10-29] MEDS: SERTRALINE HCL 50 MG TABLET 100 MG PO (09:09)
[2021-10-29] MEDS: SIMETHICONE 80 MG TAB.CHEW PO ×3 (09:10→16:27)
[2021-10-29] MEDS: MULTIVIT/MIN/PREN/FOL AC/IRON TABLET 1 TAB PO (09:10)
[2021-10-29 12:11] LABS: Rapid Plasma Reagin Non-Reactive (NonReactive)
--- NOTE | 2021-10-29 13:23 | PC.NURSE ---
[id number] Introductions were made, then consulted with patient to assess needs related to . Mother led the conversation with her?plans to feed?her infant and the?experience so far. Resources provided for inpatient and outpatient services using a resource guide and mom/baby guide. Mother voiced understanding of information and will call if there is a request for assistance. RN encouraged waking and undressing her , use skin to skin and encourage to breastfeed. Mother voiced understanding if she would like assistance with , if infant doesn't latch, or there is pain with latching to call RN. Reported to primary RN.
[2021-10-29] MEDS: RHO(D) IMMUNE GLOBULIN 300 MCG/2 ML SYRINGE IM (16:12)
[2021-10-29 19:46] VITALS: BP 93/48; PULSE 80; RESP 18; TEMP 36.4; O2SAT 99
[2021-10-29] MEDS: valACYclovir HCL 500 MG TABLET PO (22:21)
[2021-10-30] MEDS: IBUPROFEN 600 MG TABLET PO ×3 (04:59→21:51)
[2021-10-30] MEDS: HYDROcodone/acetaminophen (*CRX) 5-325 MG TABLET 1 TAB PO ×4 (04:59→21:51)
--- NOTE | 2021-10-30 07:47 | PM.OBPNVD ---
OB - PN: Subj Subjective Date/time seen: 10/30/21 07:47 Patient comments: no complaints, pain well controlled, incisional pain, tolerating diet and flatus present OB - PN: Obj Data Labs CBC & Chem 7: 10/29/21 04:22 Labs: Laboratory Results - last 24 hr 10/28/21 10/29/21 09:08 04:22 RPR Non-reactive Blood Type O Negative Antibody Screen Negative Screen Negative Baby's Blood Type O pos Baby's JEFE Negative Doses of RhIg Required 1 OB - PN A/P Plan day: 2 Plan: routine care Comments: POD#2 LTCS - no problems, Time Spent With Patient Time: Total time spent is greater than 50% in coordination of care (as documented) at patient's floor/unit and/or counseling patient: Exam Const: General: comfortable, no acute distress and alert Resp: Effort & Inspection: normal respiratory effort Auscultation: no crackles, no rales and no rhonchi Cardio: Rate: regular rate Heart sounds: no click, no murmurs and no rubs GI: Inspection: non-distended GI Palp: No Tenderness to palpation present (GI) Auscultation: normal bowel sounds Other: Incision - CDI Extrem: General: normal to inspection, no pedal edema and no calf tenderness
[2021-10-30 08:05] VITALS: BP 84/64; PULSE 93; RESP 16; TEMP 36.6; O2SAT 99
[2021-10-30] MEDS: DOCUSATE SODIUM 100 MG CAPSULE PO (09:23)
[2021-10-30] MEDS: MULTIVIT/MIN/PREN/FOL AC/IRON TABLET 1 TAB PO (09:23)
[2021-10-30] MEDS: SIMETHICONE 80 MG TAB.CHEW PO ×2 (09:23→14:18)
[2021-10-30] MEDS: POLYSACCHARIDE IRON COMPLEX 150 MG CAPSULE PO (09:24)
--- NOTE | 2021-10-30 09:48 | PC.NURSE ---
[id number] Consulted with patient to assess needs related to . Mother led the conversation with her?plans to feed?her and the?experience so far stating her nipples are sore. Nipples are bilaterally excoriated in the middle of the nipples from possible shallow latching . Mother recalls the resources provided for inpatient and outpatient services using a resource guide yesterday and welcomes RN to unwrap and place skin to skin to work with optimal latching. Mother works well with her with encouragement and education. Encouraged understanding of the benefits of skin to skin (unwrapping infant and placing vertically on her chest), responsive feeding and how to watch for early feeding signs, frequency of feeding on demand about every 8-12 times in 24 hours (every 2-3 hours), milk production, duration of feeding, signs of adequate intake/output and how to record on the feeding sheet. Reviewed positioning and ear, shoulder, hip alignment, supporting the breast, asymmetrical latch (off-center), and leading with the chin with a big open side gape. latched optimally to the left breast in football position. Education given to mother of how to visualize suck/swallow ratios and how to recognize swallowing by hearing the ca sound before a pause in the effective . was able to maintain latch without discomfort to mother. Nipple care reviewed with optimal latch and good positioning. Reviewed good handwashing when or touching the breast/nipples to prevent infection. There are times when it appears infant is chomping instead of using the rocking motion of effective . Mother instructed on stimulating techniques to encourage to drink at the breast and mother denies pain with . Resources used to facilitate learning were used with the mom and baby guide. Mother voiced understanding of responsive feedings, stimulating with skin to skin, hand expressed colostrum, touch, talking to infant to encourage if it has been 2 -3 hours since the start of the last , to call if does not latch or there is discomfort with . Reported to the primary RN. Discussed 's assessment with Dr. Hunter.
[2021-10-30] MEDS: valACYclovir HCL 500 MG TABLET PO ×2 (14:18→21:51)
[2021-10-30 14:24] VITALS: PULSE 93; RESP 16; O2SAT 99
[2021-10-30 19:53] VITALS: BP 109/51; PULSE 86; RESP 18; TEMP 36.6; O2SAT 99
[2021-10-31] MEDS: HYDROcodone/acetaminophen (*CRX) 5-325 MG TABLET 1 TAB PO ×2 (04:15→08:50)
[2021-10-31] MEDS: SIMETHICONE 80 MG TAB.CHEW PO (04:16)
[2021-10-31] MEDS: IBUPROFEN 600 MG TABLET PO (04:16)
--- NOTE | 2021-10-31 07:21 | PM.OBPNVD ---
OB - PN: Subj Subjective Date/time seen: 10/31/21 07:21 Patient comments: no complaints, pain well controlled and tolerating diet OB - PN: Obj Data Labs CBC & Chem 7: 10/29/21 04:22 Labs: Laboratory Results - last 24 hr 10/29/21 04:22 Blood Type O Negative Antibody Screen Negative Screen Negative Baby's Blood Type O pos Baby's JEFE Negative Doses of RhIg Required 1 OB - PN A/P Plan day: 3 Plan: routine care and discharge home Time Spent With Patient Time: Total time spent is greater than 50% in coordination of care (as documented) at patient's floor/unit and/or counseling patient: Exam Const: General: comfortable and no acute distress Resp: Effort & Inspection: normal respiratory effort Auscultation: no rales, no rhonchi and no wheezes Cardio: Rate: regular rate Heart sounds: no click, no murmurs and no rubs GI: GI Palp: Yes Soft to palpation and No Tenderness to palpation present (GI) Auscultation: normal bowel sounds Extrem: General: normal to inspection, no pedal edema and no calf tenderness
[2021-10-31 07:55] VITALS: BP 112/61; PULSE 76; RESP 18; TEMP 36.6; O2SAT 100
[2021-10-31] MEDS: MULTIVIT/MIN/PREN/FOL AC/IRON TABLET 1 TAB PO (08:48)
[2021-10-31] MEDS: SERTRALINE HCL 50 MG TABLET 100 MG PO (08:48)
[2021-10-31] MEDS: POLYSACCHARIDE IRON COMPLEX 150 MG CAPSULE PO (08:48)
[2021-10-31] MEDS: DOCUSATE SODIUM 100 MG CAPSULE PO (08:48)
[2021-10-31] MEDS: valACYclovir HCL 500 MG TABLET PO (08:50)
--- NOTE | 2021-10-31 10:19 | PC.NURSE ---
Patient viewed the discharge video Mother & Baby Care, The First Two Weeks . Patient was given the opportunity and encouraged to ask questions. Patient verbalized understanding of information shared and has been given the mother/baby guide for home reference.
--- NOTE | 2021-10-31 11:08 | PC.NURSE ---
[id number] Mother led the conversation with her experience and plan to feed her so far and her ability to to feed her . Mother is feeding appropriately for growth of infant, voiced understanding stimulating to eat if needed, and has a bottle of expressed human milk of [id number] [id number] ready to feed to her . has had appropriate feedings in the last 24 hours meets the outcomes for weight, output and jaundice at this time. Mother states she is confident to continue feed her at home or when to call for assistance and denies any additional assistance or education at this time. Mother latches independently but not at this time related to sore nipples. Reinforced understanding of milk production, transition of milk, signs of adequate intake, prevention/relief of engorgement, responsive after visualizing feeding cues, the different methods of stimulating to breastfeed 2-3 hours after the start of the last feeding, community resources, medication information reviewed per [employer] and when to call a provider using the resource of the mom and baby guide/[facility] website. Mother is not receiving assistance with latch at this time and voiced understanding of the education shared. Reported to the primary RN.
[2021-11-01 08:51] VITALS: BP 107/63; PULSE 88; RESP 20; TEMP 36.6; O2SAT 100
--- NOTE | 2021-11-30 20:39 | PM.OBDSVD ---
DS: Admitting Diagnosis Discharge Date 10/31/21 Admitting Diagnosis term gestation OB - DS: Summary OB Procedures : None OB Procedures Intrapartum: OB Procedures: : None Peripartum Data Procedures: Procedures Operation Date: 10/28/21 10:30 Actual Procedure Side Surgeon p Section Bilateral Monica Obrien MD Time Spent with Patient Time attestation: Total time spent providing and/or coordinating discharge services: Discharge Plan Discharge Consulting providers: Emil Sanchez ; Abel Barajas Discharging Clinician: Monica Obrien Patient Disposition: Home, Self-Care Activity: pelvic rest Diet: regular Discharge Instructions: Education: Mom and Baby Guide Given to: Mother Follow-Up: Call your delivering provider's office for an appointment to be seen in: 4 Weeks Mom and baby should come to the [facility] for the follow-up appointment. Appointment Date/Time: November 01, 2021 at 9:00 am What to expect at your follow-up visit: Blood Pressure Check Physical Assessment Call [phone] if you are unable to keep your appointment time. BREAST CARE: * Wear a snug supportive bra. * For engorgement discomfort: Breast Feeding: * Apply warm moist washcloths * Express milk as needed to relieve engorgement * Wear loose clothing Bottle Feeding: * May apply ice packs * For sore nipples: * Identify correct latch-on * Apply warm moist washcloths before and after nursing * Air dry nipples after nursing * May apply Lansinoh cream to nipples ABDOMINAL INCISION: (if applicable) * Allow incision to air dry * Do NOT use lotions for powders on your incision * When showering, allow soap and water to run over the incision, but do not wash incision EPISIOTOMY/PERINEAL CARE: * Until bleeding stops, use your adin bottle after urinating * Change your pad frequently throughout the day * You may take sitz baths several times a day (fill your bathtub with warm water and soak for 20 minutes.) Do NOT bathe in the water * No tub baths until seen by your physician - You may shower ACTIVITY: * Rest as much as possible. * Do not exercise or lift anything heavier than your baby (such as laundry or other children.) * Avoid stairs or driving as much as possible. * Do not put anything into the vagina. No douching, tampons, or sexual activity until seen by physician. NOTIFY PHYSICIAN IF YOU HAVE ANY QUESTIONS OR IF ANY OF THE FOLLOWING SYMPTOMS OCCUR: * If your episiotomy or incision becomes red, swollen, or more painful than what you have experienced in the hospital. * If your vaginal bleeding becomes foul smelling. * If your vaginal bleeding becomes more heavy than a period or if your bleeding changes from pink to bright red. However, you may pass an occasional walnut-sized clot once or twice for the first week . * If you experience a sharp, shooting pain in you calves. * If you discover a hard, reddened area on your breast or if you experience flu-like symptoms. DIET: * Eat regular, well-balanced meals. * Drink plenty of fluids daily. If , drink to thirst. Patient Instructions: Antibiotic Form, (DC) Stand Alone Forms: General Discharge Information Follow-up/Referrals: Monica Obrien MD [Physician] - Discharge Medications: New hydrocodone-acetaminophen 5-325 mg tablet 1 tablet PO Q4H PRN (Reason: pain) Qty: 25 0RF Continued sertraline 100 mg Tablet 100 mg PO DAILY prenat.vits,refugio,cer-[id number]-mpskb Tablet 1 tablet PO HS Date of admission: 10/28/21 08:31 Primary Care Provider: UNKNOWN,DOCTOR Admitting Provider: Monica Obrien Attending physician on admission: Monica Obrien Condition: Stable
== END 2021-10-31 10:45 | disposition home or self-care (01) | DRG 540 ==
LOC: ANHLDR 09:17 → ANHOB2 14:10
PROVIDERS: Obstetrics & Gynecology; Admitting Provider Obstetrics & Gynecology; Visit Provider Obstetrics & Gynecology
PROC: 10D00Z1 Extraction of Products of Conception, Low, Open Approach (ICD-10-PCS; CPT 59514; principal; 2021-10-28 10:30)
DX: O98.52 Other viral diseases complicating childbirth (principal); B00.9 Herpesviral infection, unspecified; O99.334 Smoking (tobacco) complicating childbirth; F17.210 Nicotine dependence, cigarettes, uncomplicated; O99.344 Other mental disorders complicating childbirth; F32.A Depression, unspecified; Z3A.39 39 weeks gestation of pregnancy; Z37.0 Single live birth
CPT/HCPCS: 36415; 85025; 85461; 86592; 86850; 86900; 86901; 90384; A9270; J0131; J0690; J2274; J2370; J2405; J2590; J2790; J7120

== ENCOUNTER 2021-12-01 14:20 | Emergency (ER) | payer OTHER, SELFPAY ==
[2021-12-01 14:30] VITALS: BP 114/93; PULSE 89; RESP 16; TEMP 37.3; O2SAT 98
--- NOTE | 2021-12-01 14:34 | ED.URI ---
HPI - URI/Sore Throat General Chief Complaint: Upper Respiratory Infection Stated Complaint: Coughing,Wheezing Time Seen by Provider: 12/01/21 14:36 Source: patient, RN notes reviewed and old records reviewed Mode of arrival: ambulatory Limitations: no limitations History of Present Illness HPI Narrative: 26-year-old female presents to the [facility] with complaints of 1-2 weeks of coughing and wheezing. Denies chest pain. Has had intermittent shortness of breath with coughing. Patient is currently breast-feeding Related Data Home Medications Medication Instructions Recorded Confirmed prenat.vits,refugio,dnl-cyyg-bophe 1 tablet PO HS 10/04/21 12/01/21 sertraline 100 mg tablet 100 mg PO DAILY 10/04/21 12/01/21 Allergies Allergy/AdvReac Type Severity Reaction Status Date / Time No Known Allergies Allergy Verified 12/01/21 14:23 Review of Systems Review of Systems: All systems reviewed & are unremarkable except as noted in HPI and below Constitutional: Constitutional: Reports no additional constitutional complaints, Denies chills and Denies fever(s) Eyes: Eyes: Reports no additional eye complaints ENT: Reports system reviewed and no additional complaints, except as documented Cardiovascular: Cardiovascular: Reports no additional cardiovascular complaints Respiratory: Respiratory: Reports as per HPI, Reports chest congestion, Reports cough, Denies dyspnea and Reports wheezing Gastrointestinal: Gastrointestinal: Reports no additional gastrointestinal complaints Musculoskeletal: Musculoskeletal: Reports no additional musculoskeletal complaints Integumentary/Breasts: Skin/Breast: Reports system reviewed and no additional complaints, except as docu Neurologic: Reports system reviewed and no additional complaints, except as documented Psychiatric: Psychiatric: Reports no additional psychiatric complaints Allergic/Immunologic: Allergic/Immunologic: Reports no additional allergic/immunologic complaints [facility] Past Medical History Medical History Anemia Depression affecting No significant past medical history Surgical History Surgical History No significant past surgical history Family History Family History Grandparent COPD (chronic obstructive pulmonary disease) Mother Hypertension Social History Social History Smoking status: Light tobacco smoker Tobacco type: cigarettes Substance use: never Gender identity (if verbalized by the patient): Female Spiritual care concerns: No Comments At the time of my signature, I reviewed and agree with the nursing past medical, surgical, social, and family history. There is no relevant family history pertinent to the patient complaint. Exam Const: General: healthy appearing, no acute distress and alert Nutritional Appearance: well nourished Orientation/consciousness: patient oriented x3 Limitations: no limitations HENMT: Head: normal to inspection Ears: external ears normal Eyes: General: appearance normal, both eyes and all related structures Pupils: Equal, round and reactive pupils present Neck: Neck: normal visual inspection, no lymphadenopathy and no meningeal signs Chest: Chest palpation & inspection: normal inspection of the chest Resp: Effort & Inspection: normal respiratory effort and no use of accessory muscles Auscultation: no crackles, no rales, no rhonchi and wheezes Cardio: Rate: regular rate Rhythm: regular rhythm Back/Spine/Pelvis: Cervical Spine: normal cervical lordosis Thoracic/Lumbar Spine: thoracic and lumbar spine normal to inspection Skin: General skin exam: normal color Rashes: no rashes Wounds: no wounds Neuro: General: patient oriented x3, moves all extremities, no meningeal signs and no f
[2021-12-01] MEDS: IPRATROPIUM BR 0.02% INH SOLN 0.5 MG/2.5 ML VIAL INHALATION (14:47)
[2021-12-01] MEDS: ALBUTEROL SULFATE NEB 2.5 MG/3 ML INH INHALATION (14:47)
== END 2021-12-01 15:45 | disposition home or self-care (01) ==
PROVIDERS: Emergency Provider Nurse Practitioner; PCP Family Medicine
DX: J40 Bronchitis, not specified as acute or chronic (principal); F17.210 Nicotine dependence, cigarettes, uncomplicated
CPT/HCPCS: 94640; 99213; G0463

== ENCOUNTER 2022-07-05 12:52 | Emergency (ER) | payer OTHER, SELFPAY ==
--- NOTE | 2022-07-05 12:58 | ED.FEMALEGU ---
HPI - Female Genitourinary General Chief complaint: Urogenital-Female Stated complaint: UTI Time Seen by Provider: 07/05/22 13:58 Source: patient and RN notes reviewed Mode of arrival: ambulatory Limitations: no limitations History of Present Illness HPI Narrative: 26-year-old female presents concern for several day history of burning with urination, suprapubic pressure. She reports symptoms started to improve with cranberry juice but then came back. She denies fever, aches, chills, sweats. She denies back pain, abdominal pain, nausea. She reports history of urinary tract infections MD elicited complaint: UTI Related Data Home Medications Medication Instructions Recorded Confirmed sertraline 100 mg tablet 100 mg PO DAILY 10/04/21 07/05/22 Allergies Allergy/AdvReac Type Severity Reaction Status Date / Time No Known Allergies Allergy Verified 07/05/22 13:16 Review of Systems Review of Systems: CONSTITUTIONAL: Denies malaise, chills, sweats, or fever. CARDIOVASCULAR: Denies chest pain, palpitations, or edema. RESPIRATORY: Denies cough or dyspnea. GASTROINTESTINAL: Denies abdominal pain, nausea, vomiting, diarrhea GENITOURINARY: Reports dysuria, suprapubic pressure. Denies frequency, urgency, flank pain or hematuria. SKIN: Denies rash or itching. MUSCULOSKELETAL: Denies back pain or myalgia. All systems reviewed & are unremarkable except as noted in HPI and below PMFSH Past Medical History Medical History Anemia Depression affecting No significant past medical history Surgical History Surgical History No significant past surgical history Family History Family History Grandparent COPD (chronic obstructive pulmonary disease) Mother Hypertension Social History Social History Smoking status: Light tobacco smoker Tobacco type: cigarettes Substance use: never Gender identity (if verbalized by the patient): Female Spiritual care concerns: No Comments At time of signature, agree with nursing past medical, surgical, social and family history. There is no relevant family history pertinent to the presenting complaint Exam Narrative: GENERAL: Well-appearing, well-nourished, and in no acute distress. HEAD: Normocephalic. EYES: PERRLA, conjunctivae clear. NECK: Supple. No lymphadenopathy CHEST: Clear to auscultation. No respiratory distress. HEART: Regular rate and rhythm. ABDOMEN: Soft, nontender upon palpation, nondistended, normal active bowel sounds, no palpable or pulsatile masses, no guarding. No CVA tenderness SKIN: Warm, dry, no rash. NEURO: Alert and oriented x3. PSYCH: Normal mood and affect Course Course Emergency Course: Patient is aware of diagnosis, understands and agrees to treatment plan. Anticipatory guidance given. Patient agrees to follow-up as directed and is aware of reasons to seek care at the emergency department. Portions of this record may have been created with voice recognition software Level of Care: Express Care Visit Vital Signs Vital signs: Vital Signs Temperature 97.7 F 07/05/22 13:29 Pulse Rate 79 07/05/22 13:29 Respiratory Rate 18 07/05/22 13:29 Blood Pressure 126/75 07/05/22 13:29 Pulse Oximetry 100 07/05/22 13:29 Temperature 97.7 F 07/05/22 13:29 Pulse Rate 79 07/05/22 13:29 Respiratory Rate 18 07/05/22 13:29 Blood Pressure 126/75 07/05/22 13:29 Pulse Oximetry 100 07/05/22 13:29 Reviewed. MDM - Female Genitourinary MDM Narrative Medical decision making narrative: Exam findings and UA show no acute concerns or changes; patient is non-toxic appearing and is in no distress. Patient is appropriate for outpatient treatment and follow-up. Differential Diagnosis Differential diagnosi
[2022-07-05 13:29] VITALS: BP 126/75; PULSE 79; RESP 18; TEMP 36.5; O2SAT 100
== END 2022-07-05 14:20 | disposition home or self-care (01) ==
PROVIDERS: Emergency Provider Nurse Practitioner; PCP Family Medicine
DX: N39.0 Urinary tract infection, site not specified (principal); F17.210 Nicotine dependence, cigarettes, uncomplicated; F32.A Depression, unspecified
CPT/HCPCS: 81003; 87077; 87086; 87186; 99213; G0463

== ENCOUNTER 2022-08-06 11:53 | Emergency (ER) | payer OTHER, SELFPAY ==
--- NOTE | 2022-08-06 11:59 | ED.EAR ---
HPI - Ear Problem General Chief complaint: Ear Stated complaint: Ears Irritation Time Seen by Provider: 08/06/22 12:00 Source: patient Mode of arrival: ambulatory Limitations: no limitations History of Present Illness HPI Narrative: Patient is a 26-year-old female who presents with bilateral ear pain and decreased hearing. Patient states she recently got over an illness in her ears have been bothering her since. Patient denies any use of Q-tips. Denies any fever, chills, nausea, vomiting, diarrhea, congestion, cough, sore throat at this time. Has not used [id number] earwax remover. Complaint: ear pain Related Data Home Medications Medication Instructions Recorded Confirmed sertraline 100 mg tablet 100 mg PO DAILY 10/04/21 08/06/22 Allergies Allergy/AdvReac Type Severity Reaction Status Date / Time No Known Allergies Allergy Verified 08/06/22 12:05 Review of Systems Review of Systems: All systems reviewed & are unremarkable except as noted in HPI and below Constitutional: Constitutional: Denies body ache(s), Denies chills, Denies fever(s), Denies headache(s) and Denies malaise Eyes: Eyes: Denies blurry vision, Denies eye discharge and Denies irritation ENT: Reports otalgia, Denies headache(s), Reports hearing loss, Denies nasal congestion, Denies nasal discharge and Denies sore throat Cardiovascular: Cardiovascular: Denies chest pain, Denies edema, Denies palpitations and Denies dyspnea on exertion Respiratory: Respiratory: Denies cough and Denies dyspnea on exertion Gastrointestinal: Gastrointestinal: Denies abdominal pain, Denies diarrhea, Denies nausea and Denies vomiting Musculoskeletal: Musculoskeletal: Denies back pain, Denies arthralgias and Denies muscle weakness Integumentary/Breasts: Skin/Breast: Denies pruritus and Denies rash Neurologic: Denies headache(s) Psychiatric: Psychiatric: Reports no additional psychiatric complaints Endocrine: Endocrine: Denies palpitations PMFSH Past Medical History Medical History Anemia Depression affecting No significant past medical history Surgical History Surgical History No significant past surgical history Family History Family History Grandparent COPD (chronic obstructive pulmonary disease) Mother Hypertension Social History Social History Smoking status: Light tobacco smoker Tobacco type: cigarettes Substance use: never Gender identity (if verbalized by the patient): Female Spiritual care concerns: No Comments At time of signature, agree with nursing past medical, surgical, social and family history. There is no relevant family history pertinent to the presenting complaint? Exam Const: General: cooperative, healthy appearing, no acute distress and well nourished Nutritional Appearance: well nourished Orientation/consciousness: patient oriented x3 Limitations: no limitations HENMT: Head: normal to inspection, normocephalic and atraumatic Ears: hearing grossly normal bilaterally, no periauricular adenopathy, Abnormal EAC present cerumen impaction bilateral and erythema bilateral and TM abnormal obstructed by cerumen bilateral Face/Nose/Sinus: Normal external nose present, Normal nares present, Normal nasal mucous membranes and turbinates present, No nasal discharge present, normal facial exam and sinuses nontender Face and sinus: normal facial exam and sinuses nontender Mouth: Yes Normal oral and palatal mucosa present, Yes lip normal, Yes tongue normal and Yes moist mucous membranes Throat: posterior oropharynx normal, tonsils normal and uvula midline Eyes: General: appearance normal, both eyes and all related structures Alignment and Position: alignment normal and position normal Eyelids: eye
[2022-08-06 12:05] VITALS: BP 137/86; PULSE 90; RESP 12; TEMP 36.7; O2SAT 98
[2022-08-06 12:06] VITALS: BP 137/86; PULSE 90; RESP 12; TEMP 36.7; O2SAT 98
--- NOTE | 2022-08-06 12:35 | PC.NURSE ---
attempted several times to scan, verified by BE Hou
--- NOTE | 2022-08-06 13:01 | PC.NURSE ---
EDITOR DEPARTMENT was able to irrigate ear with elephant and did not need to use lighted curette
== END 2022-08-06 13:10 | disposition home or self-care (01) ==
PROVIDERS: Emergency Provider Nurse Practitioner Family; PCP Family Medicine
DX: H60.503 Unspecified acute noninfective otitis externa, bilateral (principal); H66.93 Otitis media, unspecified, bilateral; H61.23 Impacted cerumen, bilateral; F17.210 Nicotine dependence, cigarettes, uncomplicated; F32.A Depression, unspecified
CPT/HCPCS: 69209; 99213; A9270; G0463

== ENCOUNTER 2023-06-29 11:04 | Outpatient (CLI) | payer OTHER, SELFPAY ==
[2023-06-29 12:20] LABS: Basophils Percent Auto 0.4 % (0.2-1.2); Eosinophils Percent Auto 0.4 % (0-4.4); Hematocrit 35.3 % (37.0-47.0); Hemoglobin 11.5 g/dL (12.0-15.0); Immature Granulocyte Absolute 0.11 K/mm3 (0.00-0.031); Immature Granulocyte Percent A 1.5 % (0-0.5); Lymphocytes Absolute Auto 1.13 K/mm3 (0.9-3.2); Lymphocytes Percent Auto 15.8 % (18.3-44.2); Mean Corpuscular HGB Conc 32.6 g/dl (32-36); Mean Corpuscular Hemoglobin 28.7 pg (26-34); Mean Platelet Volume 10.2 fl (7.4-10.4); Monocytes Absolute Auto 0.7 K/mm3 (0.1-0.6); Monocytes Percent Auto 9.9 % (2.6-8.5); Neutrophils Absolute Auto 5.2 K/mm3 (1.3-6.7); Platelet Count Result 195 k/mm3 (150-375); Red Blood Count 4.01 M/mm3 (4.2-5.4); Red Cell Distribution Width 15.1 % (11.5-14.5); White Blood Count 7.2 K/mm3 (4.5-10.0)
[2023-06-30 14:40] LABS: Rapid Plasma Reagin Non-Reactive (NonReactive)
== END 2023-06-29 11:05 | disposition home or self-care (01) ==
PROVIDERS: Visit Provider Obstetrics & Gynecology
DX: O36.0130 Maternal care for anti-D [Rh] antibodies, third trimester, not applicable or unspecified (principal); Z36.85 Encounter for antenatal screening for Streptococcus B; Z36.89 Encounter for other specified antenatal screening; Z3A.00 Weeks of gestation of pregnancy not specified
CPT/HCPCS: 36415; 85025; 86592; 86850; 86900; 86901

== ENCOUNTER 2023-06-30 05:32 | Inpatient (IN) | payer OTHER, SELFPAY ==
[2023-06-30] VITALS (42 sets, daily range): BP systolic 88–130; BP diastolic 53–86; PULSE 69–165; RESP 14–18; TEMP 36.1–36.5; O2SAT 95–100; BMI 39.0
[2023-06-30] MEDS: ACETAMINOPHEN 500 MG TABLET 1000 MG PO (05:49)
[2023-06-30] MEDS: LACTATED RINGERS 1,000 ML 125 ML IV CONT ×2 (05:50→06:45)
--- NOTE | 2023-06-30 06:16 | LDADM ---
This patient, Josie Henderson, was admitted to Labor/Delivery/Recovery 120 on 06/30/23 at 05:32. Plans for labor, pain management and were discussed with patient. Patient/family oriented to hospital policies and general routines including ID bracelet, bed and alarms, visiting hours, pain management, procedures, bathroom and other care routines, personal items, smoking policy, room service/diet and guest tray routines, security routines, and visiting hours. Patient/Family are encouraged to report perceived risks to care and to ask questions if they do not understand what they are told or what they should do. See OBIX for further documentation.
[2023-06-30] MEDS: ONDANSETRON INJ 4 MG/2 ML VIAL IV PUSH (07:06)
[2023-06-30] MEDS: FAMOTIDINE 20 MG/2 ML VIAL IV PUSH (07:06)
--- NOTE | 2023-06-30 07:11 | PM.IMHP ---
H&P: HPI History of Present Illness Date/Time: 06/30/23 07:11 Chief Complaint: Term Narrative: 27-year-old multiparous female with previous delivery presents at term for repeat . We have agreed to repeat delivery. She understands the risk. She understands injuries may occur that resulted in hospitalization, more surgery, and severe illness. She understands risk of hemorrhage infection. She understands the procedure. It has been explained to her in detail. She denies any nausea, vomiting, fever, chills. She denies any chest pain or shortness of breath. Review of Systems Review of Systems: All systems reviewed & are unremarkable except as noted in HPI and below Constitutional: Constitutional: Denies chills, Denies fatigue, Denies fever(s) and Denies weakness Eyes: Eyes: Denies blurry vision, Denies change in vision, Denies loss of peripheral vision, Denies loss of vision, Denies other visual disturbances and Denies eye pain ENT: Denies vertigo, Denies dizziness, Denies hearing loss, Denies mouth pain, Denies nasal obstruction, Denies neck mass and Denies neck pain Cardiovascular: Cardiovascular: Denies chest pain, Denies diaphoresis, Denies syncope, Denies leg edema and Denies dyspnea Respiratory: Respiratory: Denies chest congestion, Denies cough, Denies hemoptysis, Denies dyspnea and Denies wheezing Gastrointestinal: Gastrointestinal: Denies abdominal pain, Denies constipation, Denies diarrhea, Denies nausea and Denies vomiting Genitourinary: Genitourinary: Denies hematuria, Denies change in libido, Denies nocturia, Denies genital lesions, Denies flank pain and Denies urinary urgency Musculoskeletal: Musculoskeletal: Denies abnormal gait, Denies back pain, Denies myalgias, Denies arthralgias, Denies joint swelling, Denies muscle weakness and Denies neck pain Integumentary/Breasts: Skin/Breast: Denies swelling, Denies breast pain, Denies breast mass, Denies dry skin, Denies nipple discharge, Denies unusual bruising and Denies jaundice Neurologic: Denies Neuro-related abnormal movements, Denies Abnormal speech present, Denies abnormal gait, Denies behavioral changes, Denies confusion, Denies vertigo, Denies dizziness, Denies syncope, Denies loss of vision, Denies memory loss, Denies convulsions and Denies weakness Psychiatric: Psychiatric: Denies abnormal sleep pattern, Denies behavioral changes, Denies change in libido, Denies confusion, Denies depression, Denies anhedonia and Denies memory loss Endocrine: Endocrine: Reports no additional endocrine complaints, Denies change in libido and Denies fatigue Hematologic/Lymphatic: Hematologic/Lymphatic: Reports no additional hematologic/lymphatic complaints Allergic/Immunologic: Allergic/Immunologic: Reports no additional allergic/immunologic complaints and Denies wheezing PMFSH Past Medical History Medical History Anemia Depression affecting No significant past medical history Surgical History Surgical History No significant past surgical history Family History Family History Grandparent COPD (chronic obstructive pulmonary disease) Mother Hypertension Social History Social History Smoking status: Current every day smoker Tobacco type: e-cigarettes/vaping Second hand tobacco smoke exposure: Yes Substance use: never Do You Feel Safe in your Home?: Yes Lack of Transportation: No Lack of Food: Never True Current Housing: I Have Housing Concerned About Future Housing: No Difficulty Paying Gas/Electric Bills: No Difficulty Paying for Meds: No Currently Unemployed: No Education: High School Diploma/GED Difficulty w/ Childcare or Family Care: No Gender identity (if verbalized by the patien
[2023-06-30] MEDS: ceFAZolin 2 GM/D5W 50 ML 2 GM/50 ML BAG IVPB (07:13)
--- NOTE | 2023-06-30 07:14 | WPDHPUPDATE1 ---
History and Physical Update Update Date/Time: 06/30/23 07:14 History and Physical has been reviewed, including an updated exam of the patient. There are NO changes in the patient's condition. Risks, benefits, and alternatives have been discussed and questions answered. Patient agrees to proceed with procedure.
--- NOTE | 2023-06-30 07:16 | WPDANESEPPF ---
Anes - Initial Pre Proc Eval Procedure: Operation Date: 06/30/23 07:30 Proposed Procedures p Repeat Section - Monica Obrien MD Date/Time: 06/30/23 07:16 Surgeon: Monica Obrien MD Pre Op Diagnosis: C/S Patient Data Age: 27 Gender: F Height: 1.6 m Weight: 100 kg Last Vital Signs Pulse 83 06/30/23 06:30 BP 129/75 06/30/23 06:30 O2 Del Method Room Air 06/30/23 06:12 Allergies Allergy/AdvReac Type Severity Reaction Status Date / Time No Known Allergies Allergy Verified 06/30/23 06:35 Home Medications Medication Instructions Recorded Confirmed Type sertraline 100 mg tablet 100 mg PO DAILY 10/04/21 06/30/23 History ferrous sulfate 325 mg (65 mg 325 mg PO DAILY 06/25/23 06/30/23 History iron) tablet (Iron (ferrous sulfate)) vits no.126-ferrous fum 1 tablet PO DAILY 06/25/23 06/30/23 History 28 mg iron-folic acid 800 mcg tablet (Classic ) Patient hx anesthesia problems: none Family hx anesthesia problems: none Results Review: All pre-operative results and documents have been reviewed as part of the pre-operative evaluation. [facility] Past Medical History Medical History Anemia Depression affecting No significant past medical history Surgical History Surgical History No significant past surgical history Family History Family History Grandparent COPD (chronic obstructive pulmonary disease) Mother Hypertension Social History Social History Smoking status: Current every day smoker Tobacco type: e-cigarettes/vaping Second hand tobacco smoke exposure: Yes Substance use: never Do You Feel Safe in your Home?: Yes Lack of Transportation: No Lack of Food: Never True Current Housing: I Have Housing Concerned About Future Housing: No Difficulty Paying Gas/Electric Bills: No Difficulty Paying for Meds: No Currently Unemployed: No Education: High School Diploma/GED Difficulty w/ Childcare or Family Care: No Gender identity (if verbalized by the patient): Female Spiritual care concerns: No Anes - Eval Final PreProcedure Day of Procedure 06/30/23 07:16 Patient weight: normal Heart: regular rate and rhythm Lungs: clear to auscultation Airway: Mallampati scale class II Neurological: alert and oriented Last oral intake: >/= 8 hours ASA classification: II Emergent: no Anesthetic plan: proceed Anesthesia type and monitoring: regional spinal and standard monitoring Other findings: Plts 195. Results Review: All pre-operative results and documents have been reviewed as part of the pre-operative evaluation. Informed Consent: The patient's anesthetic plan and its attendant risks and benefits were discussed with the patient/family/POA. Questions were solicited and answers provided to the satisfaction of the patient/family/POA.
[2023-06-30] MEDS: KETOROLAC 30 MG/ML VIAL (*BKC) 15 MG IV PUSH (08:18)
--- NOTE | 2023-06-30 08:35 | W.PM.OBCSD ---
OB - Delivery Note Procedure Delivery date: 06/30/23 Pre-op diagnosis: Previous Delivery Post-op Diagnosis: Same Procedure Performed: Repeat Surgeon: Monica Obrien MD Anesthesia type: Spinal Description of Procedure/Findings: The patient was taken the operating room.? She was prepped and draped in dorsal supine position with a leftward tilt.? This was done after spinal anesthetic was applied.? A low-transverse skin incision was made and carried down till of the fascia with the knife.? The fascial incision was made with the knife.? The fascial incision was extended laterally with Cruz scissors.? The fascia was tented upward superiorly and inferiorly the rectus muscles were dissected off bluntly.? The rectus muscles were the midline.? The preperitoneal fat and peritoneum were dissected open bluntly at the superior aspect of the rectus muscles.? The peritoneal incision was extended superior and inferior with good position of bladder.? The uterine incision was made with a scalpel down to the level of the amniotic cavity.? The amniotic cavity was entered bluntly.? The was delivered.? The cord was clamped and cut and the was handed off to waiting pediatric staff.? Cord bloods were obtained.? The placenta was removed manually.? The uterus was exteriorized.? The uterus was cleared of all clots, debris and membranes.? The uterus was closed in 0 Vicryl running lock fashion.? An imbricating over a was placed along the incision line as well.? The uterus was returned to the abdomen.? The gutters were cleared of all clots and debris.? The fascia was closed with 0 Vicryl running fashion.? The subcutaneous tissue was irrigated pinpoint bleeders were cauterized.? The skin was closed with subcuticular absorbable aryan.? The skin incision line was covered with glue.? The patient tolerated the procedure well.? She has taken recovery room in stable condition.? Sponge lap and needle counts were correct x2.? Baby Weeks of gestation at delivery: 39
[2023-06-30] MEDS: OXYTOCIN 30 UNITS/NS 500 ML 30 UNITS/500 ML BAG 125 UNITS IV CONT (09:11)
[2023-06-30] MEDS: LORATADINE 10 MG TABLET PO (09:25)
[2023-06-30] MEDS: HYDROmorphone HCL INJ (*CRX) 1 MG/ML SYR 0.25 MG IV PUSH ×3 (09:47→10:45)
--- NOTE | 2023-06-30 11:30 | PC.NURSE ---
Patient transferred to post room #291 via stretcher. Support person present. Oriented to unit, room, information board, rooming in, admission packet and security measures. Patient verbalizes understanding.
[2023-06-30] MEDS: DOCUSATE SODIUM 100 MG CAPSULE PO (14:12)
[2023-06-30] MEDS: SIMETHICONE 80 MG TAB.CHEW PO ×2 (14:13→18:50)
[2023-06-30] MEDS: KETOROLAC 15 MG/ML VIAL (*BKC) IV PUSH ×2 (14:13→20:04)
[2023-06-30] MEDS: ACETAMINOPHEN 325 MG TABLET 650 MG PO ×2 (14:13→20:03)
--- NOTE | 2023-06-30 14:35 | PC.NURSE ---
Mother taken down to Level II Nursery to see baby via wheelchair with baby's father.
[2023-06-30] MEDS: DEXTROSE 5%/0.45% SOD CHL 1,000 ML 125 ML IV CONT (17:00)
--- NOTE | 2023-06-30 18:15 | PC.NURSE ---
Mother requesting to be taken down to Level II Nursery now to see baby, mother taken by this RN via wheelchair.
[2023-06-30] MEDS: HYDROcodone/acetaminophen (*CRX) 5-325 MG TABLET 1 TAB PO (18:50)
[2023-06-30] MEDS: SERTRALINE HCL 50 MG TABLET 100 MG PO (20:03)
[2023-07-01] MEDS: ACETAMINOPHEN 325 MG TABLET 650 MG PO ×3 (04:23→17:10)
[2023-07-01] MEDS: KETOROLAC 15 MG/ML VIAL (*BKC) IV PUSH ×2 (04:23→10:47)
[2023-07-01 04:28] VITALS: BP 110/67; PULSE 76; RESP 18; TEMP 36.6; O2SAT 100
[2023-07-01 05:30] LABS: Basophils Percent Auto 0.4 % (0.2-1.2); Eosinophils Percent Auto 0.4 % (0-4.4); Hematocrit 30.3 % (37.0-47.0); Hemoglobin 9.7 g/dL (12.0-15.0); Immature Granulocyte Absolute 0.08 K/mm3 (0.00-0.031); Lymphocytes Absolute Auto 1.12 K/mm3 (0.9-3.2); Lymphocytes Percent Auto 14.6 % (18.3-44.2); Mean Corpuscular Volume 90.4 fl (80-100); Mean Platelet Volume 11.1 fl (7.4-10.4); Monocytes Absolute Auto 0.6 K/mm3 (0.1-0.6); Monocytes Percent Auto 7.9 % (2.6-8.5); Neutrophils Absolute Auto 5.8 K/mm3 (1.3-6.7); Neutrophils Percent Auto 75.7 % (45.5-73.1); Platelet Count Result 160 k/mm3 (150-375); Red Blood Count 3.35 M/mm3 (4.2-5.4); Red Cell Distribution Width 15.3 % (11.5-14.5); White Blood Count 7.7 K/mm3 (4.5-10.0)
--- NOTE | 2023-07-01 07:48 | P.PNOB_ITS ---
OB - PN: Subj Subjective Date/time seen: 07/01/23 07:48 Patient comments: no complaints, pain well controlled, tolerating diet and flatus present OB - PN: Obj Data Labs 07/01/23 04:13 Labs: Laboratory Results - last 24 hr 07/01/23 04:13 WBC 7.7 RBC 3.35 L Hgb 9.7 L Hct 30.3 L MCV 90.4 MCH 29.0 MCHC 32.0 RDW 15.3 H Plt Count 160 MPV 11.1 H Immature Gran % (Auto) 1.0 H Neut % (Auto) 75.7 H Lymph % (Auto) 14.6 L [place] % (Auto) 7.9 Eos % (Auto) 0.4 Baso % (Auto) 0.4 Lymph # (Auto) 1.12 [place] # (Auto) 0.6 Eos # (Auto) 0.0 Baso # (Auto) 0.0 Abs Immat Gran (auto) 0.08 H Absolute Neuts (auto) 5.8 Absolute Nucleated RBC 0.000 Nucleated RBC % 0.0 Blood Type O Negative Antibody Screen TNP OB - PN A/P Plan day: 1 Comments: Post Op LTCS - no problems, routine recovery Time Spent With Patient Time: Total time spent is greater than 50% in coordination of care (as documented) at patient's floor/unit and/or counseling patient: Exam Const: General: cooperative, healthy appearing, comfortable and no acute distress Resp: Auscultation: no crackles, no rales, no rhonchi and no wheezes Cardio: Rhythm: regular rhythm Heart sounds: no click and no murmurs GI: Inspection: non-distended Auscultation: normal bowel sounds Extrem: General: normal to inspection, no pedal edema and no calf tenderness
--- NOTE | 2023-07-01 08:03 | WPDANLDPN2 ---
Anes-Prog Note L&D Date/Time: 07/01/23 08:03 Comfortable throughout: section Neuraxial method: spinal Epidural/Spinal procedure site: clean & non-tender Neuro status: Neuro function grossly intact. Cardiovascular status: normal Respiratory status: normal Airway patency: baseline Mental status: baseline Post-Op hydration status: normal Vital Signs: Last Vital Signs Temp 36.6 C 07/01/23 04:28 Pulse 76 07/01/23 04:28 Resp 18 07/01/23 04:28 BP 110/67 07/01/23 04:28 Pulse Ox 100 07/01/23 04:28 O2 Del Method Room Air 06/30/23 19:55 Pain score (VAS): 05/29 I/O: Intake & Output 06/30/23 07/01/23 07/01/23 23:59 07:59 15:59 Intake Total 740 Output Total 500 1400 Balance 240 -1400 Post-procedural complaints: none Patient feedback: Patient satisfied with anesthetic care.
--- NOTE | 2023-07-01 08:03 | WPDANLDNPN2 ---
Anes-Prog Note L&D-Neuraxial Date/Time: 07/01/23 08:03 Neuraxial medications: intrathecal PF morphine Opiod-related complaints: none Patient feedback: Patient satisfied with post-operative pain management.
[2023-07-01 08:20] VITALS: BP 104/67; PULSE 78; RESP 18; TEMP 37.2; O2SAT 98
[2023-07-01] MEDS: POLYSACCHARIDE IRON COMPLEX 150 MG CAPSULE PO ×2 (08:26→17:10)
[2023-07-01] MEDS: MULTIVIT/MIN/PREN/FOL AC/IRON TABLET 1 TAB PO (08:26)
[2023-07-01] MEDS: SIMETHICONE 80 MG TAB.CHEW PO ×2 (08:26→17:12)
[2023-07-01] MEDS: DOCUSATE SODIUM 100 MG CAPSULE PO ×2 (08:26→17:10)
[2023-07-01] MEDS: HYDROcodone/acetaminophen (*CRX) 10-325 MG TABLET 1 TAB PO ×4 (09:20→22:20)
--- NOTE | 2023-07-01 10:20 | PC.NURSE ---
Breast pump provided due to separation from infant. Instructions given on cleaning, care, usage, that there should be no pain, pumping schedule for milk production, collection, and storage of human milk. Patient was assessed for correct placement, flange size, to pump for comfort and nipple stretching/stimulation for adequate milk production every 3 hours (8 times in 24 hours) 1-2 times at night.
[2023-07-01] MEDS: RHO(D) IMMUNE GLOBULIN 300 MCG/2 ML SYRINGE IM (10:47)
--- NOTE | 2023-07-01 11:10 | PC.NURSE ---
Patient on therapeutic leave pass to visit in [facility] N[facility].
[2023-07-01 15:15] VITALS: BP 110/62; PULSE 72; RESP 17; TEMP 36.4; O2SAT 99
--- NOTE | 2023-07-01 15:15 | PC.NURSE ---
Patient returned from therapeutic leave pass.
--- NOTE | 2023-07-01 15:19 | PC.NURSE ---
It was reported to RN FRANCIS this morning that mother has been pumping with her hands free pump from home. Primary RN provided a [employer] pump to assist with building a good milk supply due to separation from her . Mother left on a pass to see her infant before initiating pumping with the provided hospital pump.
--- NOTE | 2023-07-01 15:46 | PC.NURSE ---
[id number] Introductions were made, then consulted with patient to assess needs related to /milk production related to the separation with her infant. Discussed with mother her?plans to feed?her and mother shared latches at [facility] well. Mother is educated with respect to flange fitting and pumping. Mother measured her nipples at 15 mm and states the 21mm flanges at the hospital cause pain and she was advised not to use them. Demonstrated the skill of hand expression and patient returned demonstration. We discussed collecting, storage and what to expect with milk production the first 24-48 hours. Resources provided for inpatient and outpatient services. Mother voiced understanding of information and will call if there is a request for assistance.
[2023-07-01] MEDS: IBUPROFEN 600 MG TABLET PO (17:10)
[2023-07-01 18:40] VITALS: BP 117/77; PULSE 89; RESP 18; TEMP 37; O2SAT 99
[2023-07-01] MEDS: SERTRALINE HCL 50 MG TABLET 100 MG PO (22:22)
[2023-07-02] MEDS: IBUPROFEN 600 MG TABLET PO ×2 (01:05→07:07)
[2023-07-02] MEDS: ACETAMINOPHEN 325 MG TABLET 650 MG PO ×2 (01:05→07:07)
[2023-07-02] MEDS: MULTIVIT/MIN/PREN/FOL AC/IRON TABLET 1 TAB PO (07:07)
[2023-07-02] MEDS: POLYSACCHARIDE IRON COMPLEX 150 MG CAPSULE PO (07:07)
[2023-07-02] MEDS: DOCUSATE SODIUM 100 MG CAPSULE PO (07:07)
[2023-07-02] MEDS: SIMETHICONE 80 MG TAB.CHEW PO (07:07)
--- NOTE | 2023-07-02 07:13 | PM.OBPNVD ---
OB - PN: Subj Subjective Date/time seen: 07/02/23 07:13 Patient comments: no complaints, pain well controlled, incisional pain, tolerating diet and flatus present OB - PN: Obj Data Labs 07/01/23 04:13 Labs: Laboratory Results - last 24 hr 07/01/23 04:13 Blood Type O Negative Antibody Screen TNP Screen Negative Baby's Blood Type O pos Baby's JEFE Negative Doses of RhIg Required 1 OB - PN A/P Plan day: 2 Plan: routine care Comments: POD#2 LTCS - no problems, Time Spent With Patient Time: Total time spent is greater than 50% in coordination of care (as documented) at patient's floor/unit and/or counseling patient: Exam Const: General: comfortable, no acute distress and alert Resp: Effort & Inspection: normal respiratory effort Auscultation: no crackles, no rales and no rhonchi Cardio: Rate: regular rate Heart sounds: no click, no murmurs and no rubs GI: Inspection: non-distended Auscultation: normal bowel sounds Other: Incision - CDI Extrem: General: normal to inspection, no pedal edema and no calf tenderness
--- NOTE | 2023-07-02 07:14 | PM.OBDSVD ---
DS: Admitting Diagnosis Discharge Date July 02, 2023 Admitting Diagnosis term DS: Discharge Diagnosis Discharge Diagnosis (1) Previous delivery, delivered: Code(s): O34.219 - Maternal care for unspecified type scar from previous delivery Status: Acute (2) Post-op pain: Code(s): G89.18 - Other acute postprocedural pain Status: Acute OB - DS: Summary OB Procedures : None OB Procedures Intrapartum: OB Procedures: : None Peripartum Data Procedures: Procedures Operation Date: 06/30/23 07:30 Actual Procedure Side Surgeon p Repeat Section Not Applicable Monica Obrien MD Time Spent with Patient Time attestation: Total time spent providing and/or coordinating discharge services: DS: Data Data Completed and Pending Labs on day of discharge: Labs from last 24 hours 07/01/23 04:13 Blood Type O Negative Antibody Screen TNP Screen Negative Baby's Blood Type O pos Baby's JEFE Negative Doses of RhIg Required 1 Discharge Plan Discharge Attending physician on discharge: Miki Obrien Consulting providers: Negin Duque; David Sidhu; Gio Cespedes Discharging Clinician: Miki Obrien Patient Disposition: Home, Self-Care Activity: pelvic rest Diet: regular Discharge Instructions: Education: Mom and Baby Guide Given to: Mother Follow-Up: Call your delivering provider's office for an appointment to be seen in: call Mom and baby should come to the [facility] for the follow-up appointment. Appointment Date/Time: July 03, 2023 at 8:00 am What to expect at your follow-up visit: Physical Assessment Call [phone] if you are unable to keep your appointment time. BREAST CARE: * Wear a snug supportive bra. * For engorgement discomfort: Breast Feeding: * Apply warm moist washcloths * Express milk as needed to relieve engorgement * Wear loose clothing * For sore nipples: * Identify correct latch-on * Apply warm moist washcloths before and after nursing * Air dry nipples after nursing * May apply Lansinoh cream to nipples ABDOMINAL INCISION: * Allow incision to air dry * Do NOT use lotions for powders on your incision * When showering, allow soap and water to run over the incision, but do not wash incision PERINEAL CARE: * Until bleeding stops, use your adin bottle after urinating * Change your pad frequently throughout the day * No tub baths until seen by your physician - You may shower ACTIVITY: * Rest as much as possible. * Do not exercise or lift anything heavier than your baby (such as laundry or other children.) * Avoid stairs or driving as much as possible. * Do not put anything into the vagina. No douching, tampons, or sexual activity until seen by physician. NOTIFY PHYSICIAN IF YOU HAVE ANY QUESTIONS OR IF ANY OF THE FOLLOWING SYMPTOMS OCCUR: * If your incision becomes red, swollen, or more painful than what you have experienced in the hospital. * If your vaginal bleeding becomes foul smelling. * If your vaginal bleeding becomes more heavy than a period or if your bleeding changes from pink to bright red. However, you may pass an occasional walnut-sized clot once or twice for the first week . * If you experience a sharp, shooting pain in you calves. * If you discover a hard, reddened area on your breast or if you experience flu-like symptoms. DIET: * Eat regular, well-balanced meals. * Drink plenty of fluids daily. Patient Instructions: Antibiotic Form Stand Alone Forms: General Discharge Information Follow-up/Referrals: Miki Obrien MD [Physician] - Call for Appointment Discharge Medications: New oxycodone-acetaminophen 5-325 mg tablet 1 tablet PO Q4H PRN (Reason: pain) Qty: 25 0RF Continued ferrous sulfate [Iron (ferrous sulf
--- NOTE | 2023-07-02 07:38 | PM.OBPNVD ---
OB - PN: Subj Subjective Date/time seen: 07/02/23 07:38 Interval history: pp day 2 plan d/c home baby transferred OB - PN: Obj Data Labs 07/01/23 04:13 Labs: Laboratory Results - last 24 hr 07/01/23 04:13 Blood Type O Negative Antibody Screen TNP Screen Negative Baby's Blood Type O pos Baby's JEFE Negative Doses of RhIg Required 1 OB - PN A/P Plan day: 2 Plan: routine care and discharge home Time Spent With Patient Time: Total time spent is greater than 50% in coordination of care (as documented) at patient's floor/unit and/or counseling patient: Review of Systems Review of Systems: All systems reviewed & are unremarkable except as noted in HPI and below Exam Const: General: cooperative, healthy appearing and no acute distress Resp: Effort & Inspection: normal respiratory effort GI: Other: incision CDI Neuro: General: patient oriented x3
--- NOTE | 2023-07-02 07:39 | P.DS_ITS ---
DS: Admitting Diagnosis Discharge Date 07/02/23 Admitting Diagnosis repeat section DS: Discharge Diagnosis Discharge Diagnosis (1) Previous delivery, delivered: Code(s): O34.219 - Maternal care for unspecified type scar from previous delivery Status: Acute OB - DS: Summary OB Procedures : None OB Procedures Intrapartum: OB Procedures: : None Peripartum Data Procedures: Procedures Operation Date: 06/30/23 07:30 Actual Procedure Side Surgeon p Repeat Section Not Applicable Monica Obrien MD Time Spent with Patient Time attestation: Total time spent providing and/or coordinating discharge services: DS: Data Data Completed and Pending Labs on day of discharge: Labs from last 24 hours 07/01/23 04:13 Blood Type O Negative Antibody Screen TNP Screen Negative Baby's Blood Type O pos Baby's JEFE Negative Doses of RhIg Required 1 Discharge Plan Discharge Attending physician on discharge: Monica Obrien Discharging Clinician: Monica Obrien Patient Disposition: Home, Self-Care Activity: pelvic rest Diet: regular Patient Instructions: Antibiotic Form Stand Alone Forms: General Discharge Information Follow-up/Referrals: Monica Obrien MD [Physician] - Discharge Medications: New oxycodone-acetaminophen 5-325 mg tablet 1 tablet PO Q4H PRN (Reason: pain) Qty: 25 0RF Continued ferrous sulfate [Iron (ferrous sulfate)] 325 mg (65 mg iron) Tablet 325 mg PO DAILY Classic 28 mg iron- 800 mcg Tablet 1 tablet PO DAILY sertraline 100 mg Tablet 100 mg PO DAILY Date of admission: 06/30/23 05:32 Primary Care Provider: PHYSICIAN,HEALTHCARE ASSOCIATE Admitting Provider: Monica Obrien Attending physician on admission: Monica Obrien Condition: Stable
[2023-07-02 07:40] VITALS: BP 116/77; PULSE 70; RESP 16; TEMP 36.9; O2SAT 100
[2023-07-02] MEDS: LIDOCAINE 5% PATCH 1 PATCH TRANSDERM (08:23)
[2023-07-02] MEDS: HYDROcodone/acetaminophen (*CRX) 10-325 MG TABLET 1 TAB PO (08:25)
== END 2023-07-02 11:00 | disposition home or self-care (01) | DRG 540 ==
LOC: ANHLDR 05:35 → ANHOB2 11:33
PROVIDERS: Admitting Provider Obstetrics & Gynecology; Visit Provider Obstetrics & Gynecology
PROC: 10D00Z1 Extraction of Products of Conception, Low, Open Approach (ICD-10-PCS; CPT 59514; principal; 2023-06-30 07:30)
DX: O34.219 Maternal care for unspecified type scar from previous cesarean delivery (principal); O99.02 Anemia complicating childbirth; D64.9 Anemia, unspecified; O99.334 Smoking (tobacco) complicating childbirth; F17.210 Nicotine dependence, cigarettes, uncomplicated; O69.81X0 Labor and delivery complicated by cord around neck, without compression, not applicable or unspecified; Z3A.39 39 weeks gestation of pregnancy; Z37.0 Single live birth
CPT/HCPCS: 36415; 85025; 85461; 86850; 86900; 86901; 90384; A9270; J0690; J1170; J1885; J2274; J2371; J2405; J2590; J2790; J7120

== ENCOUNTER 2024-01-19 17:28 | Outpatient (CLI) | payer OTHER, SELFPAY ==
--- NOTE | ~2024-01-19 | XR_ITS ---
EXAM: XR foot LT min 3V, XR foot RT min 3V DATE: 01/19/2024 17:44 HISTORY: Hallux valgus of bilateral feet . COMPARISON: X-ray left foot 08/02/2016. FINDINGS: Normal mineralization. No fracture or dislocation. No lytic or blastic lesion. Mild bilate ral degenerative change at the first MTP joints. Bilateral moderate hallux valgus. No erosion or adin osteal change. Soft tissues within normal limits. IMPRESSION: Bilateral hallux valgus, mild bilateral MTP joint osteoarthritis, otherwise unremarkable bilateral foot radiograph findings. Reviewed, dictated and finalized at location K. IMPRESSION: Bilateral hallux valgus, mild bilateral MTP joint osteoarthritis, o therwise unremarkable bilateral foot radiograph findings.
== END 2024-01-19 17:29 | disposition home or self-care (01) ==
PROVIDERS: Visit Provider Podiatrist Foot & Ankle Surgery
DX: M20.12 Hallux valgus (acquired), left foot (principal); M20.11 Hallux valgus (acquired), right foot; M15.0 Primary generalized (osteo)arthritis; G89.29 Other chronic pain
CPT/HCPCS: 73630